=== PATIENT | female | born 2000 | race Caucasian/White ===

== ENCOUNTER → 2022-02-23 | Outpatient (CLI) | payer OTHER, SELFPAY ==
[2022-02-23 17:41] LABS: Amphetamine Urine VISTA NEGATIVE (<1000 ng/mL); Barbiturate Urine VISTA NEGATIVE (< 200 ng/mL); Benzodiazepine Urine VISTA NEGATIVE (< 200 ng/mL); Cocaine Urine VISTA NEGATIVE (< 300 ng/mL); Ecstacy Urine VISTA NEGATIVE (< 500 ng/mL); Methadone Urine VISTA NEGATIVE (< 300 ng/mL); PCP Urine VISTA NEGATIVE (< 25 ng/mL); THC Urine VISTA NEGATIVE (< 50 ng/mL); Vista UDS pH Range 5
[2022-02-26 08:10] LABS: Chlamydia By Nucleic Acid AMP Negative (Negative)
[2022-02-26 13:18] LABS: HPV Reflexed? NOT INDICATED
[2022-02-26 19:04] LABS: Gonococcus By Nucleic Acid AMP Negative (Negative)
== END | disposition home or self-care (01) ==
LOC: LABSPEC 16:51
PROVIDERS: Referring Provider Obstetrics & Gynecology; Visit Provider Obstetrics & Gynecology
DX: Z34.00 Encounter for supervision of normal first pregnancy, unspecified trimester (principal)
CPT/HCPCS: 80307; 87077; 87086; 87088; 87186; 87491; 87591; 88175; G0145

== ENCOUNTER → 2022-03-26 | Outpatient (CLI) | payer OTHER, SELFPAY ==
[2022-03-26 11:29] LABS: Absolute Lymphocyte Count 1.75 X10^3/uL (0.83-4.51); Absolute Neutrophil Count 4.6 X10^3/uL (2.0-7.7); Basophil# 0.01 X10^3/uL; Basophil% 0.1 % (0-1); Eosinophil# 0.01 X10^3/uL; Eosinophils% 0.1 % (0-5); Hematocrit 37.8 % (37-47); Hemoglobin 13.1 g/dL (12.0-15.0); Lymphocyte # 1.75 X10^3/ul (0.83-4.51); Lymphocyte % 25.1 % (19-41); Mean Corp Hgb Conc 34.7 g/dL (32-36); Mean Corpuscular Hgb 30.2 pg (27.0-32.0); Mean Corpuscular Volume 87.1 fL (81-99); Mean Platelet Vol. 10.2 fl (6.2-12.0); Monocyte# 0.55 X10^3/uL; Monocyte% 7.9 % (0-10); NRBC Flagged by Analyzer 0 % (0-5); Neutrophil # 4.63 X10^3/uL (2.7-7.7); Neutrophil % 66.7 % (47-70); Platelet Count 245 K/mm3 (150-450); RBC Distribution Width CV 11.9 % (11.6-14.6); RBC Distribution Width SD 38.3 fl (35.1-43.9); Red Blood Count 4.34 M/mm3 (4.2-5.4)
[2022-03-26 12:37] LABS: HIV - WCH Non-Reactive (Nonreactive); Hepatitis B Surface Antigen Non-Reactive (Nonreactive); Hepatitis C Antibody Non-Reactive (Nonreactive); Rubella IgG Reactive (Nonreactive); Syphilis Antibodies Non-reactive
== END | disposition home or self-care (01) ==
LOC: LAB 10:24
PROVIDERS: Visit Provider Obstetrics & Gynecology
DX: Z34.00 Encounter for supervision of normal first pregnancy, unspecified trimester (principal)
CPT/HCPCS: 36415; 85025; 86703; 86762; 86780; 86803; 86850; 86900; 86901; 87340

== ENCOUNTER → 2022-06-18 | Outpatient (CLI) | payer OTHER, SELFPAY ==
[2022-06-18 10:33] LABS: Absolute Neutrophil Count 7.9 X10^3/uL (2.0-7.7); Basophil# 0.01 X10^3/uL; Basophil% 0.1 % (0-1); Eosinophil# 0.03 X10^3/uL; Eosinophils% 0.3 % (0-5); Hematocrit 35.3 % (37-47); Hemoglobin 11.6 g/dL (12.0-15.0); Mean Corp Hgb Conc 32.9 g/dL (32-36); Mean Corpuscular Hgb 29.7 pg (27.0-32.0); Mean Corpuscular Volume 90.3 fL (81-99); Mean Platelet Vol. 9.8 fl (6.2-12.0); Monocyte# 0.75 X10^3/uL; Monocyte% 7.5 % (0-10); NRBC Flagged by Analyzer 0 % (0-5); Neutrophil # 7.88 X10^3/uL (2.7-7.7); Neutrophil % 78.5 % (47-70); Platelet Count 249 K/mm3 (150-450); RBC Distribution Width CV 12.5 % (11.6-14.6); RBC Distribution Width SD 41.1 fl (35.1-43.9); Red Blood Count 3.91 M/mm3 (4.2-5.4)
[2022-06-18 11:28] LABS: Glucose Challenge Gest 1H 50g 86 mg/dL (70-140)
== END | disposition home or self-care (01) ==
LOC: LAB 10:02
PROVIDERS: Referring Provider Obstetrics & Gynecology; Visit Provider Obstetrics & Gynecology
DX: Z34.00 Encounter for supervision of normal first pregnancy, unspecified trimester (principal)
CPT/HCPCS: 36415; 82950; 85025

== ENCOUNTER 2022-07-14 14:55 | Outpatient (CLI) | payer OTHER, SELFPAY ==
[2022-07-14 14:59] VITALS: BP 137/68; PULSE 83; TEMP 36.5
[2022-07-14 15:13] VITALS: BP 125/61; PULSE 73
[2022-07-14 15:22] VITALS: BMI 36.4
[2022-07-14 15:29] VITALS: BP 124/63; PULSE 83
[2022-07-14 16:10] LABS: Hematocrit 36.4 % (37-47); Hemoglobin 12.3 g/dL (12.0-15.0); Mean Corp Hgb Conc 33.8 g/dL (32-36); Mean Corpuscular Hgb 29.9 pg (27.0-32.0); Mean Corpuscular Volume 88.6 fL (81-99); Mean Platelet Vol. 10.2 fl (6.2-12.0); Platelet Count 268 K/mm3 (150-450); RBC Distribution Width CV 12.5 % (11.6-14.6); RBC Distribution Width SD 40.5 fl (35.1-43.9); Red Blood Count 4.11 M/mm3 (4.2-5.4); White Blood Count 10.7 K/mm3 (4.4-11.0)
[2022-07-14 16:15] VITALS: BP 126/64; PULSE 71
[2022-07-14 16:17] LABS: Protein, Urine (Random) 9.4 mg/dL (<11.9); Protein:Creat Ratio 205 mg/g CRE (0-200)
[2022-07-14 16:30] VITALS: BP 117/56; PULSE 75
--- NOTE | 2022-07-14 16:39 | OB.TRI.HP_ITS ---
HPI - General HPI Narrative SHAYLA COOPER, is a 22 F who presents to rule out pih. Her bp's in the hospital were all normal and the pc:cr ratio was also normal. She remains asymptomatic Maternal Data Information LEYDI Calculator Estimated Delivery Date Method Current WG Current Estimate 09/10/22 LMP (Uncertain) 31w 5d Other Estimates 09/10/22 Ultrasound #1 31w 5d PFSH PFSH Medical History DUB (dysfunctional uterine bleeding) Shingles Subcutaneous cyst Home Medications prenat.vits,lázaro,ngt-zffb-okrxd 1 tab PO DAILY 02/08/22 [History Last Taken 07/13/22 09:00] Allergy/AdvReac Type Severity Reaction Status Date / Time No Known Allergies Allergy Verified 07/14/22 15:23 Social History adopted: No household members: significant other number of children: 0 current occupational status: employed current occupation: [employer] Smoking Status: Never smoker alcohol intake: never substance use type: does not use do you feel safe at home: Yes additional social history: Tray Menard History 1 Elective abortions Hx Para 0 Spontaneous abortions Hx # Term Pregnancies Ectopic pregnancies Hx # Pregnancies Multiple births # of living children Visit Details Expected Delivery Route/Plan Labor Preferences- CB/BF classes: recommended and taking just breath labor support person: reymundo labor intervention preferences: [] pain management options preferred: [] cut cord/dad catch: [] : [] PP control planned: [] discussed possible routes of delivery and associated risks: [] special requests: will be circ. Plans Covid status: discussed Flu vaccine: disccussed Tdap vaccine: [] Rhogam: [] LARC form signed: [] Problem list reviewed and updated with the most current plan of care details and appropriate orders placed. Relevant counseling for the gestational age provided. Continue routine care and follow up unless otherwise noted in visit notes/problem list details OB Flowsheet Initial Weight: Not Recorded Date -?-?-?-?-?-?-?-?-?-?-?-?- EGA Weight BP Urine Prot -?-?-?--?-?-?-?-?-?-?-?-?- Glucose FHR FuHt Pres Dilation -?-?-?-?-?-?-?-?-?--?-?-?- Effaced St Visit Note 02/23/22 -?-?-?-?-?-?-?-?-?-?-?-?- 11w 4d 169 lb 4 oz 144/78 -?-?-?-?-?-?-?-?-?-?-?-?- 160 -?-?-?-?-?-?-?-?-?-?-?-?- JV- CRL consiste nt with LMP. pt wants genetic screening 03/26/22 -?-?-?-?-?-?--?-?-?-?-?-?- 16w 0d 168 lb 120/71 Negative -?-?-?-?-?-?-?-?-?-?-?-?- Negative 150 -?-?-?-?-?-?-?-?-?-?-?-?- SM- no vb lof no regular ctx 04/23/22 -?-?-?-?-?-?-?-?-?-?-?-?- 20w 0d 178 lb 6 oz 148/60 107/61 -?-?-?-?-?-?-?-?-?-?-?-?- 145 -?-?-?-?-?-?-?-?-?-?-?-?- SM- no vb crampi ng 05/21/22 -?-?-?-?-?-?-?-?-?-?-?-?- 24w 0d 186 lb 8 oz 129/71 Nega tive -?-?-?-?-?-?-?-?-?-?-?-?- Negative 147 -?-?-?-?--?-?-?-?-?-?-?-?- JV- no lof, vagi nal bleeding, or dec fm. pt states that the chest pain she had when she was on vacation was due to stress and she has not had any problems since then. 06/18/22 -?-?-?-?-?-?-?-?-?-?-?-?- 28w 0d 198 lb 127/66 Negative -?-?-?-?-?-?-?-?-?-?-?-?- Negative 134 -?-?-?-?-?-?-?-?-?-?-?-?- JV- pt is unsure about tdap. she did gct and cbc today which is pending. 07/02/22 -?-?-?-?-?-?-?-?-?-?-?-?- 30w 0d 201 lb 102/70 -?-?-?-?-?-?-?-?-?-?-?-?- 140 30 -?-?-?-?-?-?-?-?-?-?-?-?- SM- no vb lof go od fm no regular ctx 07/14/22 -?-?-?-?-?-?-?-?-?-?-?-?- 31w 5d 208 lb 140/90 Negative -?-?-?-?-?-?-?-?-?-?-?-?- Negative 135 32 -?-?-?-?-?-?-?-?-?-?-?-?- LC- denies heada cassie, RUQ, visual changes. has had increased edema past few days. sent to L&D for AR[facility] clemens. ELIAZAR Constitutional Constitutional: Reports systems reviewed and no addt'l complaints, except as documented Gastrointestinal Gastrointestinal: Denies bloating, constipation, cramping, diarrhea, nausea or vomiting Genitourinary Genitourinary: Reports other Details: Denies vaginal odor, vaginal bleeding, or vaginal discharge ; Denies difficulty urinating or flank pain NST FHR Rate Baby A Baseline: 140 Variability:: Moderate Accelerations:: 10 x 10 Decelerations:: None NST Reactive:: Yes FHR Category:: Category I Assessment & Plan (1) Supervision of normal first : COMMENT: PRR LEYDI:09/19/22 boy Fiance:Reymundo (2) GBS (group B streptococcus) UTI complicating : COMMENT: PCN during labor (3) : QUALIFIERS: Weeks of gestation: 31 weeks Qualified Code(s): Z3A.31 - 31 weeks gestation of COMMENT: declined genetic, ntd, and carrier screen. nl anatomy PLAN: Plan pt sent to rule out PIH/PRe-e and is ruled out at this time ok to dc to home Charges/Coding Multi Select Codes Visit Charges Office Visit/Consults: 86722 OV L3 Est Urinary/Genital Urinary/Genital CPT Codes: 24112-91 non-stress test Interp
[2022-07-14 16:45] VITALS: BP 119/67; PULSE 96
[2022-07-14 16:52] LABS: AST(SGOT) 15 U/L (15-37); Alanine Aminotransfer ALT/SGPT 21 U/L (13-56); Creatinine, Serum 0.56 mg/dL (0.55-1.02); EST Glomerular Filtration Rate 142 mL/min (>60); Est Glom Filt Rate - Afr Amer 171 mL/min (>60); Estimated Creatinine Clearance 128.14 ml/min; Uric Acid 3.3 mg/dL (2.6-6.0)
== END 2022-07-14 17:05 | disposition home or self-care (01) ==
LOC: WPOUT 14:56 → WP 14:57
PROVIDERS: Visit Provider Obstetrics & Gynecology
DX: O13.3 Gestational [pregnancy-induced] hypertension without significant proteinuria, third trimester (principal); Z3A.31 31 weeks gestation of pregnancy
CPT/HCPCS: 36415; 59025; 59050; 82565; 82570; 84156; 84450; 84460; 84550; 85027; 99218; G0378

== ENCOUNTER 2022-08-05 15:55 | Outpatient (CLI) | payer OTHER, SELFPAY ==
[2022-08-05] VITALS (15 sets, daily range): BP systolic 129–131; BP diastolic 62–68; PULSE 68–98; TEMP 36.5; O2SAT 87–100; BMI 38.8
[2022-08-05 16:36] LABS: Hematocrit 32.5 % (37-47); Hemoglobin 10.9 g/dL (12.0-15.0); Mean Corp Hgb Conc 33.5 g/dL (32-36); Mean Corpuscular Hgb 29.3 pg (27.0-32.0); Mean Corpuscular Volume 87.4 fL (81-99); Mean Platelet Vol. 10.5 fl (6.2-12.0); Platelet Count 263 K/mm3 (150-450); RBC Distribution Width CV 12.5 % (11.6-14.6); RBC Distribution Width SD 39.6 fl (35.1-43.9); Red Blood Count 3.72 M/mm3 (4.2-5.4); White Blood Count 9.4 K/mm3 (4.4-11.0)
[2022-08-05 16:53] LABS: Protein, Urine (Random) 7.1 mg/dL (<11.9); Protein:Creat Ratio 296 mg/g CRE (0-200)
[2022-08-05 17:30] LABS: AST(SGOT) 14 U/L (15-37); Alanine Aminotransfer ALT/SGPT 22 U/L (13-56); Creatinine, Serum 0.53 mg/dL (0.55-1.02); EST Glomerular Filtration Rate 150 mL/min (>60); Est Glom Filt Rate - Afr Amer 182 mL/min (>60); Estimated Creatinine Clearance 135.39 ml/min; Uric Acid 3.8 mg/dL (2.6-6.0)
--- NOTE | 2022-08-11 01:57 | OB.TRI.PN_ITS ---
Progress Notes Date of Service: 08/05/22 Progress Note: Patient presents for triage evaluation secondary to possible preeclampsia FHT: 130 Moderate variability reactive no decelerations category I tracing [place]: no regular Contractions Assessment and plan: normal bps no preeclampsia Reactive NST, reassuring mate rnal and status patient discharged to home to follow-up as scheduled. See problem list details for additional plan information. Laboratory Studies: Laboratory Tests 08/05/22 08/05/22 08/05/22 Range/Units 16:25 16:25 16:25 WBC 9.4 (4.4-11.0) K/mm3 RBC 3.72 L (4.2-5.4) M/mm3 Hgb 10.9 L (12.0-15.0) g/dL Hct 32.5 L (37-47) % MCV 87.4 (81-99) fL MCH 29.3 (27.0-32.0) pg MCHC 33.5 (32-36) g/dL RDW Std Deviation 39.6 (35.1-43.9) fl RDW Coeff of Willi 12.5 (11.6-14.6) % Plt Count 263 (150-450) K/mm3 MPV 10.5 (6.2-12.0) fl Creatinine 0.53 L (0.55-1.02) mg/dL Estim Creat Clear Calc 135.39 ml/min Est GFR (MDRD) Af Amer 182 (>60) mL/min Est GFR (MDRD) Non-Af 150 (>60) mL/min Uric Acid 3.8 (2.6-6.0) mg/dL AST 14 L (15-37) U/L ALT 22 (13-56) U/L U Random Total Protein 7.1 (<11.9) mg/dL Urine Creatinine 24.00 (NO RANGE EST.) mg/dL Protein/Creatinin Ratio 296 H (0-200) mg/g CRE Charges/Coding Procedures Urinary/Genital 52xxx-59xxx: 61859-03 non-stress test Interp
== END 2022-08-05 17:32 | disposition home or self-care (01) ==
LOC: WPOUT 15:59 → WP 15:59
PROVIDERS: Visit Provider Obstetrics & Gynecology
DX: O26.899 Other specified pregnancy related conditions, unspecified trimester (principal)
CPT/HCPCS: 36415; 59025; 59050; 82565; 82570; 84156; 84450; 84460; 84550; 85027; 99218; G0378

== ENCOUNTER 2022-08-25 08:55 | Outpatient (CLI) | payer OTHER, SELFPAY ==
[2022-08-25] VITALS (13 sets, daily range): BP systolic 106–146; BP diastolic 55–82; PULSE 66–77; TEMP 36.8; BMI 39.0
[2022-08-25 09:49] LABS: Mean Corp Hgb Conc 34.4 g/dL (32-36); Mean Corpuscular Hgb 29.7 pg (27.0-32.0); Mean Corpuscular Volume 86.5 fL (81-99); Platelet Count 232 K/mm3 (150-450); RBC Distribution Width CV 13.2 % (11.6-14.6); RBC Distribution Width SD 41.3 fl (35.1-43.9); White Blood Count 8.6 K/mm3 (4.4-11.0)
[2022-08-25 10:02] LABS: Protein, Urine (Random) 36.6 mg/dL (<11.9); Protein:Creat Ratio 279 mg/g CRE (0-200)
[2022-08-25 10:05] LABS: AST(SGOT) 14 U/L (15-37); Alanine Aminotransfer ALT/SGPT 21 U/L (13-56); Creatinine, Serum 0.72 mg/dL (0.55-1.02); EST Glomerular Filtration Rate 106 mL/min (>60); Est Glom Filt Rate - Afr Amer 128 mL/min (>60); Estimated Creatinine Clearance 104.04 ml/min; Uric Acid 5.7 mg/dL (2.6-6.0)
--- NOTE | 2022-08-25 17:46 | OB.TRI.HP_ITS ---
HPI - General HPI Narrative SHAYLA COOPER, is a 22 F who presents to L&D at 37+5 from the office with elevated BP, headaches over the weekend. generalized edema with increased facial edema over the past 24 hours. Maternal Data Information LEYDI Calculator Estimated Delivery Date Method Current WG Current Estimate 09/10/22 LMP (Uncertain) 37w 5d Other Estimates 09/10/22 Ultrasound #1 37w 5d PFSH PFSH Medical History DUB (dysfunctional uterine bleeding) Shingles Subcutaneous cyst Home Medications prenat.vits,lázaro,kqk-vcrm-awzsv 1 tab PO DAILY 02/08/22 [History Last Taken 08/24/22] Allergy/AdvReac Type Severity Reaction Status Date / Time No Known Allergies Allergy Verified 08/25/22 08:27 Social History adopted: No household members: significant other number of children: 0 current occupational status: employed current occupation: [employer] Smoking Status: Never smoker alcohol intake: never substance use type: does not use do you feel safe at home: Yes additional social history: Tray Menard History 1 Elective abortions Hx Para 0 Spontaneous abortions Hx # Term Pregnancies Ectopic pregnancies Hx # Pregnancies Multiple births # of living children Visit Details Expected Delivery Route/Plan Labor Preferences- CB/BF classes: recommended and taking just breath labor support person: derian labor intervention preferences: open to epidural pain management options preferred: epidural likely, open to nitrous cut cord/dad catch: yes : yes PP control planned: discussed possible routes of delivery and associated risks: discussed possible delivery modalities and possible indications for each including R/B/A of , VAVD, and CS. questions answered. special requests: will be circ. Plans Covid status: discussed Flu vaccine: given Tdap vaccine: given Rhogam: na LARC form signed: na movement and labor precautions reviewed. Problem list reviewed and updated with the most current plan of care details and appropriate orders placed. Relevant counseling for the gestational age provided. Continue routine care and follow up unless otherwise noted in visit notes/problem list details OB Flowsheet Initial Weight: Not Recorded Date -?-?-?-?-?-?-?-?-?-?-?-?- EGA Weight BP Urine Prot -?-?-?-?-?-?-?-?-?-?-?-?- Glucose FHR FuHt Pres Dilation -?-?-?-?-?-?-?-?-?-?-?-?- Effaced St Visit Note 02/23/22 -?-?-?-?-?-?-?-?-?-?-?-?- 11w 4d 169 lb 4 oz 144/78 -?-?-?-?-?-?-?-?-?-?-?-?- 160 -?-?-?-?-?-?-?-?-?-?-?-?- JV- CRL consiste nt with LMP. pt wants genetic screening 03/26/22 -?-?-?-?-?-?-?-?-?-?-?-?- 16w 0d 168 lb 120/71 Negative -?-?-?-?-?-?-?-?-?-?-?-?- Negative 150 -?-?-?-?-?-?-?-?-?-?-?-?- SM- no vb lof no regular ctx 04/23/22 -?-?-?-?-?-?-?-?-?-?-?-?- 20w 0d 178 lb 6 oz 148/60 107/61 -?-?-?-?-?-?-?-?-?-?-?-?- 145 -?-?-?-?-?-?-?-?-?-?-?-?- SM- no vb crampi ng 05/21/22 -?-?-?-?-?-?-?-?-?-?-?-?- 24w 0d 186 lb 8 oz 129/71 Nega tive -?-?-?-?-?-?-?-?-?-?-?-?- Negative 147 -?-?-?-?-?-?-?-?-?-?-?-?- JV- no lof, vagi nal bleeding, or dec fm. pt states that the chest pain she had when she was on vacation was due to stress and she has not had any problems since then. 06/18/22 -?-?-?-?-?-?-?-?-?-?-?-?- 28w 0d 198 lb 127/66 Negative -?-?-?-?-?-?-?-?-?-?-?-?- Negative 134 -?-?-?-?-?-?-?-?-?-?-?-?- JV- pt is unsure about tdap. she did gct and cbc today which is pending. 07/02/22 -?-?-?-?-?-?-?-?-?-?-?-?- 30w 0d 201 lb 102/70 -?-?-?-?-?-?-?-?-?-?-?-?- 140 30 -?-?-?-?-?-?-?-?-?-?-?-?- SM- no vb lof go od fm no regular ctx 07/14/22 -?-?-?-?-?-?-?-?-?-?-?-?- 31w 5d 208 lb 140/90 Negative -?-?-?-?-?-?-?-?-?-?-?-?- Negative 135 32 -?-?-?-?-?-?-?-?-?-?-?-?- LC- denies heada cassie, RUQ, visual changes. has had increased edema past few days. sent to L&D for ARIC clemens. 07/26/22 -?-?-?-?-?-?-?-?-?-?-?-?- 33w 3d 216 lb 128/87 Negative -?-?-?-?-?-?-?-?-?-?-?-?- Negative 140 34 -?-?-?-?-?-?-?-?-?-?-?-?- LC-no ctx,lof,vb . good fm. denies concerns. 08/13/22 -?-?-?-?-?-?-?-?-?-?-?-?- 36w 0d 220 lb 6 oz 118/71 Nega tive -?-?-?-?-?-?-?-?-?-?-?-?- Negative 140 36 Cephalic -?-?-?-?-?-?-?-?-?-?-?-?- SM- no vb lof go od fm n oregular ctx 08/20/22 -?-?-?-?-?-?-?-?-?-?-?-?- 37w 0d 226 lb 136/80 Negative -?-?-?-?-?-?-?-?-?-?-?-?- Negative 140 38 Cephalic 0 -?-?-?-?-?-?-?-?-?-?-?-?- SM- no vb lof go od fm no regular ctx increased swelling retained fluid 08/25/22 -?-?-?-?-?-?-?-?-?-?-?-?- 37w 5d 231 lb 4 oz 155/84 Posi tive -?-?-?-?-?-?-?-?-?-?-?-?- Negative 145 Cephalic -?-?-?-?-?-?-?-?-?-?-?-?- LC- increased sw elling over the weekend, occ headaches. no visual changes, ruq pain. rpt BP 153/103. sent to L&D for PEC labs and serial bps. 08/25/22 -?-?-?-?-?-?-?-?-?-?-?-?- 37w 5d 227 lb 8 oz 138/78 146/82 137/75 138/72 134/76 125/69 123/65 108/57 107/56 108/55 106/56 126/72 123/74 -?-?-?-?-?-?-?-?-?-?-?-?- -?-?-?-?-?-?-?-?-?-?-?-?- NST FHR Rate Baby A Baseline: 130 Variability:: Moderate Accelerations:: 15 x 15 Decelerations:: None NST Reactive:: Yes FHR Category:: Category I Uterine Activity:: irregular Assessment & Plan (1) Elevated BP without diagnosis of hypertension: COMMENT: sent to L&D to PEC work up. increased swelling/ mild headache (2) GBS (group B streptococcus) UTI complicating : COMMENT: PCN during labor (3) Supervision of normal first : COMMENT: PRR LEYDI:09/19/[birth year] boy Fiance:Derian (4) : QUALIFIERS: Weeks of gestation: 37 weeks Qualified Code(s): Z3A.37 - 37 weeks gestation of COMMENT: declined genetic, ntd, and carrier screen. nl anatomy PLAN: Plan Patient presents for triage evaluation secondary to elevated BP. PEC work up obtained and negative findings. BP stable prior to discharge Assessment and plan: Reactive NST, reassuring maternal and status patient discharged to home to follow-up on tuesday in office for BP check. See problem list details for additional plan information. Charges/Coding Procedures Urinary/Genital 52xxx-59xxx: 01220-61 non-stress test Interp
--- NOTE | 2022-08-25 17:46 | OB.TRI.NOTE ---
HPI - General HPI Narrative SHAYLA COOPER, is a 22 F who presents to L&D at 37+5 from the office with elevated BP, headaches over the weekend. generalized edema with increased facial edema over the past 24 hours. Maternal Data Information LEYDI Calculator Estimated Delivery Date Method Current WG Current Estimate 09/10/22 LMP (Uncertain) 37w 5d Other Estimates 09/10/22 Ultrasound #1 37w 5d PFSH PFSH Medical History DUB (dysfunctional uterine bleeding) Shingles Subcutaneous cyst Home Medications prenat.vits,lázaro,nld-yqya-pxpzx 1 tab PO DAILY 02/08/22 [History Last Taken 08/24/22] Allergy/AdvReac Type Severity Reaction Status Date / Time No Known Allergies Allergy Verified 08/25/22 08:27 Social History adopted: No household members: significant other number of children: 0 current occupational status: employed current occupation: [employer] Smoking Status: Never smoker alcohol intake: never substance use type: does not use do you feel safe at home: Yes additional social history: Tray Menard History 1 Elective abortions Hx Para 0 Spontaneous abortions Hx # Term Pregnancies Ectopic pregnancies Hx # Pregnancies Multiple births # of living children Visit Details Expected Delivery Route/Plan Labor Preferences- CB/BF classes: recommended and taking just breath labor support person: derian labor intervention preferences: open to epidural pain management options preferred: epidural likely, open to nitrous cut cord/dad catch: yes : yes PP control planned: discussed possible routes of delivery and associated risks: discussed possible delivery modalities and possible indications for each including R/B/A of , VAVD, and CS. questions answered. special requests: will be circ. Plans Covid status: discussed Flu vaccine: given Tdap vaccine: given Rhogam: na LARC form signed: na movement and labor precautions reviewed. Problem list reviewed and updated with the most current plan of care details and appropriate orders placed. Relevant counseling for the gestational age provided. Continue routine care and follow up unless otherwise noted in visit notes/problem list details OB Flowsheet Initial Weight: Not Recorded Date <del>?</del> EGA Weight BP Urine Prot <del>?</del> Glucose FHR FuHt Pres Dilation <del>?</del> Effaced St Visit Note 02/23/22 <del>?</del> 11w 4d 169 lb 4 oz 144/78 <del>?</del> 160 <del>?</del> JV- CRL consistent with LMP. pt wants genetic screening 03/26/22 <del>?</del> 16w 0d 168 lb 120/71 Negative <del>?</del> Negative 150 <del>?</del> SM- no vb lof no regular ctx 04/23/22 <del>?</del> 20w 0d 178 lb 6 oz 148/60 107/61 <del>?</del> 145 <del>?</del> SM- no vb cramping 05/21/22 <del>?</del> 24w 0d 186 lb 8 oz 129/71 Negative <del>?</del> Negative 147 <del>?</del> JV- no lof, vaginal bleeding, or dec fm. pt states that the chest pain she had when she was on vacation was due to stress and she has not had any problems since then. 06/18/22 <del>?</del> 28w 0d 198 lb 127/66 Negative <del>?</del> Negative 134 <del>?</del> JV- pt is unsure about tdap. she did gct and cbc today which is pending. 07/02/22 <del>?</del> 30w 0d 201 lb 102/70 <del>?</del> 140 30 <del>?</del> SM- no vb lof good fm no regular ctx 07/14/22 <del>?</del> 31w 5d 208 lb 140/90 Negative <del>?</del> Negative 135 32 <del>?</del> LC- denies headache, RUQ, visual changes. has had increased edema past few days. sent to L&D for [facility]. 07/26/22 <del>?</del> 33w 3d 216 lb 128/87 Negative <del>?</del> Negative 140 34 <del>?</del> LC-no ctx,lof,vb. good fm. denies concerns. 08/13/22 <del>?</del> 36w 0d 220 lb 6 oz 118/71 Negative <del>?</del> Negative 140 36 Cephalic <del>?</del> SM- no vb lof good fm n oregular ctx 08/20/22 <del>?</del> 37w 0d 226 lb 136/80 Negative <del>?</del> Negative 140 38 Cephalic 0 <del>?</del> SM- no vb lof good fm no regular ctx increased swelling retained fluid 08/25/22 <del>?</del> 37w 5d 231 lb 4 oz 155/84 Positive <del>?</del> Negative 145 Cephalic <del>?</del> LC- increased swelling over the weekend, occ headaches. no visual changes, ruq pain. rpt BP 153/103. sent to L&D for PEC labs and serial bps. 08/25/22 <del>?</del> 37w 5d 227 lb 8 oz 138/78 146/82 137/75 138/72 134/76 125/69 123/65 108/57 107/56 108/55 106/56 126/72 123/74 <del>?</del> <del>?</del> NST FHR Rate Baby A Baseline: 130 Variability:: Moderate Accelerations:: 15 x 15 Decelerations:: None NST Reactive:: Yes FHR Category:: Category I Uterine Activity:: irregular Assessment & Plan (1) Elevated BP without diagnosis of hypertension: COMMENT: sent to L&D to PEC work up. increased swelling/ mild headache (2) GBS (group B streptococcus) UTI complicating : COMMENT: PCN during labor (3) Supervision of normal first : COMMENT: PRR LEYDI:09/19/[birth year] boy Fiance:Derian (4) : QUALIFIERS: Weeks of gestation: 37 weeks Qualified Code(s): Z3A.37 - 37 weeks gestation of COMMENT: declined genetic, ntd, and carrier screen. nl anatomy PLAN: Plan Patient presents for triage evaluation secondary to elevated BP. PEC work up obtained and negative findings. BP stable prior to discharge Assessment and plan: Reactive NST, reassuring maternal and status patient discharged to home to follow-up on tuesday in office for BP check. See problem list details for additional plan information. Charges/Coding Procedures Urinary/Genital 52xxx-59xxx: 16907-96 non-stress test Interp
== END 2022-08-25 11:25 | disposition home or self-care (01) ==
LOC: WPOUT 09:00 → WP 09:01
PROVIDERS: Visit Provider Registered Nurse
DX: O99.891 Other specified diseases and conditions complicating pregnancy (principal); O23.43 Unspecified infection of urinary tract in pregnancy, third trimester; R60.9 Edema, unspecified; B95.1 Streptococcus, group B, as the cause of diseases classified elsewhere; R51.9 Headache, unspecified; Z3A.37 37 weeks gestation of pregnancy; R03.0 Elevated blood-pressure reading, without diagnosis of hypertension
CPT/HCPCS: 36415; 59025; 59050; 82565; 82570; 84156; 84450; 84460; 84550; 85027; 99218; G0378

== ENCOUNTER 2022-08-31 17:17 | Inpatient (IN) | payer OTHER, SELFPAY ==
[2022-08-31] VITALS (10 sets, daily range): BP systolic 141–174; BP diastolic 78–99; PULSE 51–90; TEMP 36.4–37.2; O2SAT 97–99; BMI 40.7
[2022-08-31 17:08] LABS: Hematocrit 33.3 % (37-47); Hemoglobin 10.9 g/dL (12.0-15.0); Mean Corp Hgb Conc 32.7 g/dL (32-36); Mean Corpuscular Hgb 28.5 pg (27.0-32.0); Mean Corpuscular Volume 86.9 fL (81-99); Mean Platelet Vol. 11.4 fl (6.2-12.0); Platelet Count 239 K/mm3 (150-450); RBC Distribution Width CV 13.4 % (11.6-14.6); RBC Distribution Width SD 42.1 fl (35.1-43.9); Red Blood Count 3.83 M/mm3 (4.2-5.4); White Blood Count 7.4 K/mm3 (4.4-11.0)
[2022-08-31 17:22] LABS: AST(SGOT) 18 U/L (15-37); Alanine Aminotransfer ALT/SGPT 17 U/L (13-56); Creatinine, Serum 0.75 mg/dL (0.55-1.02); EST Glomerular Filtration Rate 100 mL/min (>60); Est Glom Filt Rate - Afr Amer 121 mL/min (>60); Estimated Creatinine Clearance 99.88 ml/min; Uric Acid 5.9 mg/dL (2.6-6.0)
--- NOTE | 2022-08-31 17:23 | HP.PCM.OB_ITS ---
HPI - General General Date of Admission: 08/31/22 HPI Narrative SHAYLA COOPER, is a 22 F who presents with elevated bps and increased swelling, intermittent mild SANDOVAL. no clonus. Maternal Data Information LEYDI Calculator Estimated Delivery Date Method Current WG Current Estimate 09/10/22 LMP (Uncertain) 38w 4d Other Estimates 09/10/22 Ultrasound #1 38w 4d PFSH PFSH Medical History DUB (dysfunctional uterine bleeding) Shingles Subcutaneous cyst Home Medications prenat.vits,lázaro,nid-rjfy-wvtxt 1 tab PO DAILY 02/08/22 [History Last Taken 08/29/22 21:00] Allergy/AdvReac Type Severity Reaction Status Date / Time No Known Allergies Allergy Verified 08/31/22 16:41 Social History adopted: No household members: significant other number of children: 0 current occupational status: employed current occupation: [employer] Smoking Status: Never smoker alcohol intake: never substance use type: does not use do you feel safe at home: Yes additional social history: Tray Menard History 1 Elective abortions Hx Para 0 Spontaneous abortions Hx # Term Pregnancies Ectopic pregnancies Hx # Pregnancies Multiple births # of living children Visit Details Expected Delivery Route/Plan Labor Preferences- CB/BF classes: recommended and taking just breath labor support person: derian labor intervention preferences: open to epidural pain management options preferred: epidural likely, open to nitrous cut cord/dad catch: yes : yes PP control planned: discussed possible routes of delivery and associated risks: discussed possible delivery modalities and possible indications for each including R/B/A of , VAVD, and CS. questions answered. special requests: will be circ. Plans Covid status: discussed Flu vaccine: given Tdap vaccine: given Rhogam: na LARC form signed: na movement and labor precautions reviewed. Problem list reviewed and updated with the most current plan of care details and appropriate orders placed. Relevant counseling for the gestational age provided. Continue routine care and follow up unless otherwise noted in visit notes/problem list details OB Flowsheet Initial Weight: Not Recorded Date -?-?-?-?-?-?-?-?-?-?-?-?- EGA Weight BP Urine Prot -?-?-?-?-?-?-?-?-?-?-?-?- Glucose FHR FuHt Pres Dilation -?-?-?-?-?-?-?-?-?-?-?-?- Effaced St Visit Note 02/23/22 -?-?--?-?-?-?-?-?-?-?-?-?- 11w 4d 76.771 kg 144/78 -?-?-?-?-?-?-?-?-?-?-?-?- 160 -?-?-?-?-?-?-?-?-?-?-?-?- JV- CRL consiste nt with LMP. pt wants genetic screening 03/26/22 -?-?-?-?-?-?-?-?-?-?-?-?- 16w 0d 76.204 kg 120/71 Negati ve -?-?-?-?-?-?-?-?-?-?-?-?- Negative 150 -?-?-?-?-?-?-?-?--?-?-?-?- SM- no vb lof no regular ctx 04/23/22 -?-?-?-?-?-?-?-?-?-?-?-?- 20w 0d 80.91 kg 148/60 107/61 -?-?-?-?-?-?-?-?-?-?-?-?- 145 -?-?-?-?-?-?-?-?-?-?-?-?- SM- no vb crampi ng 05/21/22 -?-?-?-?-?-?-?-?-?-?-?-?- 24w 0d 84.595 kg 129/71 Negati ve -?-?-?-?-?-?-?-?-?-?-?-?- Negative 147 -?-?-?-?-?-?-?-?-?-?-?-?- JV- no lof, vagi nal bleeding, or dec fm. pt states that the chest pain she had when she was on vacation was due to stress and she has not had any problems since then. 06/18/22 -?-?-?-?-?-?-?-?-?-?-?-?- 28w 0d 89.811 kg 127/66 Negati ve -?-?-?-?-?-?-?-?-?-?-?-?- Negative 134 -?-?-?-?-?-?-?-?-?-?-?-?- JV- pt is unsure about tdap. she did gct and cbc today which is pending. 07/02/22 -?-?-?-?-?-?-?-?-?-?-?-?- 30w 0d 91.172 kg 102/70 -?-?-?-?-?-?-?-?-?-?-?-?- 140 30 -?-?-?-?-?-?-?-?-?-?-?-?- SM- no vb lof go od fm no regular ctx 07/14/22 -?-?-?-?-?-?-?-?-?-?-?-?- 31w 5d 94.347 kg 140/90 Negati ve -?-?-?-?-?-?-?-?-?-?-?-?- Negative 135 32 -?-?-?-?-?-?-?-?-?-?-?-?- LC- denies heada cassie, RUQ, visual changes. has had increased edema past few days. sent to L&D for PIH josephineal. 07/26/22 -?-?-?-?-?-?-?-?-?-?-?-?- 33w 3d 97.976 kg 128/87 Negati ve -?-?-?-?-?-?-?-?-?-?-?-?- Negative 140 34 -?-?-?-?-?-?-?-?-?-?-?-?- LC-no ctx,lof,vb . good fm. denies concerns. 08/13/22 -?-?-?-?-?-?-?-?-?-?-?-?- 36w 0d 99.96 kg 118/71 Negativ e -?-?-?-?-?-?-?-?-?-?-?-?- Negative 140 36 Cephalic -?-?-?-?-?-?-?-?-?-?-?-?- SM- no vb lof go od fm n oregular ctx 08/20/22 -?-?-?-?-?-?-?-?-?-?-?-?- 37w 0d 102.512 kg 136/80 Negat darin -?-?-?-?-?-?-?-?-?-?-?-?- Negative 140 38 Cephalic 0 -?-?-?-?-?-?-?-?-?-?-?-?- SM- no vb lof go od fm no regular ctx increased swelling retained fluid 08/25/22 -?-?-?-?-?-?-?-?-?-?-?-?- 37w 5d 104.893 kg 155/84 Posit darin -?-?-?-?-?-?--?-?-?-?-?-?- Negative 145 Cephalic -?-?-?-?-?-?-?-?-?-?-?-?- LC- increased sw elling over the weekend, occ headaches. no visual changes, ruq pain. rpt BP 153/103. sent to L&D for PEC labs and serial bps. 08/31/22 -?-?-?-?-?-?-?-?-?-?-?-?- 38w 4d 107.6 kg 149/78 143/80 147/93 174/89 156/88 -?-?-?-?-?-?-?-?-?-?-?-?- -?-?-?-?-?-?-?-?-?-?-?-?- NST FHR Rate Baby A Baseline: 130 Variability:: Moderate Accelerations:: 15 x 15 Decelerations:: None NST Reactive:: Yes FHR Category:: Category I Uterine Activity:: irregular ROS Constitutional Constitutional: Reports systems reviewed and no addt'l complaints, except as documented Eyes Eyes: Denies change in vision ENT HEENT: Reports systems reviewed and no addt'l complaints, except as documented; Denies headache(s) Cardiovascular Cardiovascular: Reports systems reviewed and no addt'l complaints, except as documented; Denies chest pain or dyspnea Respiratory/Chest Respiratory/Chest: Reports systems reviewed and no addt'l complaints, except as documented Gastrointestinal Gastrointestinal: Reports systems reviewed and no addt'l complaints, except as documented; Denies abdominal pain Genitourinary Genitourinary: Reports systems reviewed and no addt'l complaints, except as documented, contractions Details: present (irregular) and movement Details: present; Denies dysuria or genital lesions Musculoskeletal Musculoskeletal: Reports systems reviewed and no addt'l complaints, except as documented Neurologic Neurologic: Reports systems reviewed and no addt'l complaints, except as documented Endocrine Endocrinology: Reports systems reviewed and no addt'l complaints, except as documented Vital Signs Vital Signs Vital Signs: 08/31/22 16:33 08/31/22 16:33 08/31/22 16:33 Temperature Temperature Source Pulse Rate 74 Blood Pressure 149/78 H BP Systolic 149 BP Diastolic 78 Pulse Ox 97 08/31/22 16:33 08/31/22 16:33 08/31/22 16:33 Temperature 98.9 F Temperature Source Temporal Pulse Rate 71 Blood Pressure BP Systolic BP Diastolic Pulse Ox 08/31/22 16:49 08/31/22 16:49 08/31/22 17:04 Temperature Temperature Source Pulse Rate 73 Blood Pressure 143/80 H 147/93 H BP Systolic 143 147 BP Diastolic 80 93 Pulse Ox 08/31/22 17:04 08/31/22 17:07 08/31/22 17:07 Temperature Temperature Source Pulse Rate 71 90 Blood Pressure 174/89 H BP Systolic 174 BP Diastolic 89 Pulse Ox 08/31/22 17:18 08/31/22 17:18 Temperature Temperature Source Pulse Rate 76 Blood Pressure 156/88 H BP Systolic 156 BP Diastolic 88 Pulse Ox Weight Weight: 107.6 kg Body Mass Index (BMI) 40.7 Physical Exam Const alert, oriented x3, no apparent distress and healthy appearing HEENT normocephalic and moist oral mucous membranes Head and Scalp: atraumatic Neck full ROM, no lymphadenopathy, supple and thyroid normal General: trachea midline Lymph Lymphatic: no lymphadenopathy noted Chest inspection of chest normal Resp normal respiratory effort Cardio regular rate GI normal to inspection, nondistended, normoactive bowel sounds, soft to palpation and non-tender Inspection: gravid external exam normal Manual OB Exam: estimated gestational size appropriate, presentation cephalic, dilated, effaced and station Extremity normal to inspection General Extremity: Negative for edema Skin no rashes or lesions noted Neuro no focal motor deficits and deep tendon reflexes 2+ bilaterally Motor Exam: strength 5/5 throughout and clonus absent Psych mental status grossly normal Labs Labs Labs: Blood Type B POSITIVE Antibody Screen NEGATIVE Hct 33.3 % (37-47) L Hgb 10.9 g/dL (12.0-15.0) L Syphilis Total Ab Non-reactive Rubella IgG Antibody Reactive (Nonreactive) Hep Bs Antigen Non-Reactive (Nonreactive) Chlamydia DNA (SRIKANTH) Negative (Negative) Neisseria gonorrhoeae DNA (SRIKANTH) Negative (Negative) HIV 1&2 Antibody Non-Reactive (Nonreactive) Glucose 1 Hr 50 gm 86 mg/dL (70-140) Assessment & Plan (1) : QUALIFIERS: Weeks of gestation: 37 weeks Qualified Code(s): Z3A.37 - 37 weeks gestation of COMMENT: declined genetic, ntd, and carrier screen. nl anatomy (2) Supervision of normal first : COMMENT: PRR LEYDI:09/19/22 boy Fiance:Derian (3) GBS (group B streptococcus) UTI complicating : COMMENT: PCN during labor (4) Gestational hypertension: COMMENT: plan IOL, labs drawn (5) Encounter for induction of labor: COMMENT: plan cytotec then pitocin PLAN: Plan Patient presents IOL, plan management for with cytotec. Pain management: plans epidural. GBS positive plan pcn in labor Management of any complications: GHTN I have reviewed the [facility] and made any clinically relevant updates.
[2022-08-31] MEDS: 0.9% Saline Lock 10 ML Syringe IV (17:33)
[2022-08-31 18:01] LABS: Protein, Urine (Random) 868.4 mg/dL (<11.9); Protein:Creat Ratio 8754 mg/g CRE (0-200)
[2022-08-31] MEDS: miSOPROStol 25 MCG TABLET VAGINAL ×2 (19:27→23:35)
[2022-09-01] VITALS (48 sets, daily range): BP systolic 108–170; BP diastolic 59–94; PULSE 35–163; TEMP 36.2–38.6; O2SAT 82–100
[2022-09-01] MEDS: miSOPROStol 25 MCG TABLET VAGINAL (03:58)
[2022-09-01] MEDS: Lactated Ringers 1,000 ML 50 ML IV (07:33)
--- NOTE | 2022-09-01 08:42 | PCM.PN.OB ---
Subjective Subjective water broke at 6:30m, clear fluid. mild/mod contractions. rating pain 4/10. not breathing through contractions. Objective Data Objective Data Vital Signs: Vital Signs Temp Pulse BP Pulse Ox 97.3 F L 80 141/86 H 100 09/01/22 07:20 09/01/22 08:33 09/01/22 08:32 09/01/22 08:33 Weight: 237 lb 3.478 oz Body Mass Index (BMI) 40.7 Intake & Output: Intake and Output for Last 24 Hours 08/30/22 08/31/22 09/01/22 23:59 23:59 23:59 Intake Total 105 / 105 Balance 105 / 105 Lab / Micro Data Attestation: I reviewed the patient's lab results. Result Diagrams: 08/31/22 16:55 08/31/22 16:55 Labs: Laboratory Results - last 24 hr 08/31/22 16:30: U Random Total Protein 868.4 H, Urine Creatinine 99.20, Protein/Creatinin Ratio 8754 H 08/31/22 16:55: WBC 7.4, RBC 3.83 L, Hgb 10.9 L, Hct 33.3 L, MCV 86.9, MCH 28.5, MCHC 32.7, RDW Std Deviation 42.1, RDW Coeff of Willi 13.4, Plt Count 239, MPV 11.4 08/31/22 16:55: Creatinine 0.75, Estim Creat Clear Calc 99.88, Est GFR (MDRD) Af Amer 121, Est GFR (MDRD) Non-Af 100, Uric Acid 5.9, AST 18, ALT 17 08/31/22 16:55: Blood Type Cancelled, Antibody Screen Cancelled 08/31/22 18:25: Blood Type B POSITIVE, Antibody Screen NEGATIVE Physical Exam Narrative clear amniotic fluid. no vaginal bleeding. ctx palpating moderate SVE 2/50/-2, midposition Const alert, oriented x3 and no apparent distress Chest inspection of chest normal Resp normal respiratory effort NST FHR Rate Baby A Baseline: 130 Variability:: Moderate Accelerations:: 15 x 15 Decelerations:: None NST Reactive:: Yes FHR Category:: Category I Assessment & Plan (1) Encounter for induction of labor: COMMENT: s/p cytotec x3 PLAN: currently david too frequently for pit/cytotec. trivedi 5 plan to recheck cervical exam around 10am. ambulate/peanut ball -pain management per request Dr. Du updated in POC. agrees with midwifery co-management and above. (2) Gestational hypertension: COMMENT: plan IOL, labs drawn (3) GBS (group B streptococcus) UTI complicating : COMMENT: PCN during labor
[2022-09-01] MEDS: LACTATED RINGERS 500 ML 999 ML IV ×2 (12:02→17:09)
[2022-09-01] MEDS: Oxytocin 15 Units/NS 250ml 15 UNITS/250 ML IV.SOLN 2 UNITS IV (12:15)
[2022-09-01] MEDS: fentaNYL-bupivacaine (epidural) 100 ML BAG EPIDURAL ×2 (12:56→17:36)
[2022-09-01] MEDS: Penicillin G 3,000,000 Units 50 ML 100 UNITS IV ×2 (13:25→18:29)
[2022-09-01] MEDS: Lactated Ringers 1,000 ML 200 ML IV (17:08)
--- NOTE | 2022-09-01 19:42 | PCM.PN.BLA ---
Progress Note assessment due to recurrent periodic variables, checked and 9 cm and therefore will stop pushing and start amnioinfusion. cat II, exp management
[2022-09-01] MEDS: Amnioinfusion- 0.9% NS 1,000 ML IV.SOLN. 1000 ML INTRA-UTER (19:50)
--- NOTE | 2022-09-01 23:27 | EX.PCM.OBRPT ---
Assessment & Plan (1) (spontaneous vaginal delivery): COMMENT: IOL PEC. . boy. LC PLAN: Dr. Du updated on delivery. BP stable post delivery Maternal Data Information LEYDI Calculator Estimated Delivery Date Method Current WG Current Estimate 09/10/22 LMP (Uncertain) 38w 5d Other Estimates 09/10/22 Ultrasound #1 38w 5d Vaginal Delivery Maternal Presentation Maternal Presentation: Medically Indicated Induction (PEC) Type of Induction: Pitocin and Cytotec Operative Information Date of Procedure: 09/01/22 Pre-Operative Diagnosis: Post-Operative Diagnosis: Surgery / Procedure Performed: Spontaneous Vaginal Delivery Type of Anesthesia: Epidural Drain: Lira to straight drain Estimated Blood Loss: 700 Time of Delivery: 22:22 Findings Description of Procedure: Patient began pushing and delivered the head in the POLINA presentation. The head was delivered atraumatically and a loose nuchal cord ?1 was identified and easily reduced over the 's head. The anterior and posterior shoulders delivered without complication followed by the rest of the and the infant was placed on the maternal abdomen. Delayed cord clamping was employed for approximately 60 seconds. Cord was clamped and cut and gentle traction was applied to the cord and the placenta delivered spontaneously immediately following it was noted to be intact with three-vessel cord. The perineum and vagina were inspected and 2nd degree laceration with pulsating vessel, repaired in usual fashion, figure of 8 for hemostasis. EBL was 700, IV pitocin provided. fundus firm and hemodynamically stable Patient and tolerated delivery well, entered recovery phase bonding skin to skin. Presentation: POLINA Amniotic Membrane Rupture Type: Spontaneous Time of Membrane Rupture: 16hrs Amniotic Fluid Description: Clear Placental Delivery Description: Spontaneous Placenta Disposition: [facility] Cord Vessel Description: 3 Vessels Cord Entanglement: Around neck x 1, loose Nuchal Cord Compression: With compression Infant A Gender: Male (1 minute): 8 (5 minute): 9 Delayed Cord Clamping: Yes Post Vaginal Delivery Medications Given After Delivery: IV Pitocin Episiotomy Description: 2nd degree Laceration: Left Mediolateral and 2nd degree Complication Complications: - (EBL 700) Multi Select Codes Urinary/Genital Urinary/Genital CPT Codes: 95448 Vaginal Delivery global pkg (CNM delivery)
[2022-09-02] VITALS (13 sets, daily range): BP systolic 133–155; BP diastolic 63–89; PULSE 75–125; RESP 15–18; TEMP 36.1–36.6; O2SAT 96–98
[2022-09-02] MEDS: Oxytocin 15 Units/NS 250ml 15 UNITS/250 ML IV.SOLN 83 UNITS IV (00:20)
--- NOTE | 2022-09-02 03:26 | NURSING ---
epidural cath removed. blue tip intact.
[2022-09-02 05:45] LABS: Hemoglobin 8.7 g/dL (12.0-15.0); Mean Corp Hgb Conc 34.8 g/dL (32-36); Mean Corpuscular Hgb 30.2 pg (27.0-32.0); Mean Corpuscular Volume 86.8 fL (81-99); Mean Platelet Vol. 10.8 fl (6.2-12.0); Platelet Count 204 K/mm3 (150-450); RBC Distribution Width CV 13.5 % (11.6-14.6); RBC Distribution Width SD 42.1 fl (35.1-43.9); Red Blood Count 2.88 M/mm3 (4.2-5.4); White Blood Count 22.4 K/mm3 (4.4-11.0)
--- NOTE | 2022-09-02 07:23 | PCM.PN.OB ---
Subjective Subjective Patient doing well without complaints. Tolerating PO. Ambulating and voiding without difficulty. feeding well. Denies chest pain, shortness of breath, calf pain/swelling, fevers, chills, lightheadedness. Objective Data Objective Data Vital Signs: Vital Signs Temp Pulse Resp BP Pulse Ox O2 Del Method 98.7 F 113 H 18 137/63 H 100 Room Air 09/01/22 23:00 09/02/22 03:23 09/02/22 03:23 09/02/22 03:23 09/01/22 18:52 09/02/22 03:23 Oxygen Delivery Method Room Air Weight: 107.6 kg Body Mass Index (BMI) 40.7 Intake & Output: Intake and Output for Last 24 Hours 08/31/22 09/01/22 09/02/22 23:59 23:59 23:59 Intake Total 3238.70 / 3238.70 466.3 / 466.3 Output Total 400 / 400 400 / 400 Balance 2838.70 / 2838.70 66.3 / 66.3 Lab / Micro Data Result Diagrams: 09/02/22 05:35 08/31/22 16:55 Labs: Laboratory Results - last 24 hr 09/02/22 05:35: WBC 22.4 H, RBC 2.88 L, Hgb 8.7 L, Hct 25.0 L, MCV 86.8, MCH 30.2, MCHC 34.8 D, RDW Std Deviation 42.1, RDW Coeff of Willi 13.5, Plt Count 204, MPV 10.8 ROS Constitutional Constitutional: Reports systems reviewed and no addt'l complaints, except as documented Cardiovascular Cardiovascular: Reports systems reviewed and no addt'l complaints, except as documented Respiratory/Chest Respiratory/Chest: Reports systems reviewed and no addt'l complaints, except as documented Gastrointestinal Gastrointestinal: Reports systems reviewed and no addt'l complaints, except as documented Physical Exam Const alert, oriented x3 and no apparent distress HEENT Head and Scalp: atraumatic Resp normal respiratory effort GI soft to palpation and non-tender Bimanual Exam - Vag & Uterus: uterus non-tender Uterus Palpation: uterus fundus firm (below Umbilicus) Assessment & Plan (1) (spontaneous vaginal delivery): COMMENT: IOL PEC. . boy. LC PLAN: Plan s/p PPD # 1 1. routine post delivery care 2. breast feeding- support given 3. rh positive 4. rubella immune
--- NOTE | 2022-09-02 07:43 | PCM.PN.OB ---
Subjective Subjective Patient doing well without complaints. Tolerating PO. Ambulating. Has not voided yet. Feeding well. Denies chest pain, shortness of breath, calf pain/swelling, fevers, chills, lightheadedness. Objective Data Objective Data Vital Signs: Vital Signs Temp Pulse Resp BP Pulse Ox O2 Del Method 98.7 F 113 H 18 137/63 H 100 Room Air 09/01/22 23:00 09/02/22 03:23 09/02/22 03:23 09/02/22 03:23 09/01/22 18:52 09/02/22 03:23 Oxygen Delivery Method Room Air Weight: 237 lb 3.478 oz Body Mass Index (BMI) 40.7 Intake & Output: Intake and Output for Last 24 Hours 08/31/22 09/01/22 09/02/22 23:59 23:59 23:59 Intake Total 3238.70 / 3238.70 466.3 / 466.3 Output Total 400 / 400 400 / 400 Balance 2838.70 / 2838.70 66.3 / 66.3 Lab / Micro Data Result Diagrams: 09/02/22 05:35 08/31/22 16:55 Labs: Laboratory Results - last 24 hr 09/02/22 05:35: WBC 22.4 H, RBC 2.88 L, Hgb 8.7 L, Hct 25.0 L, MCV 86.8, MCH 30.2, MCHC 34.8 D, RDW Std Deviation 42.1, RDW Coeff of Willi 13.5, Plt Count 204, MPV 10.8 Physical Exam Const alert and oriented x3 HEENT normocephalic Eyes PERRL Neck full ROM Resp normal respiratory effort GI soft to palpation GI Narrative: FF below U Assessment & Plan (1) (spontaneous vaginal delivery): COMMENT: IOL PEC. . boy/Akil. LC (2) Gestational hypertension: PLAN: Plan s/p PPD #1 1. routine post delivery care 2. breast feeding- support given 3. rh positive 4. rubella immune 5. Bp trending down, will continue to monitor
[2022-09-02] MEDS: Naproxen 500 MG Tablet PO ×2 (08:51→20:53)
--- NOTE | 2022-09-02 19:30 | NURSING ---
BP 155/63 at 1905. Pt verbalized that she felt like it was due to her many visitors in her room. Evaluated pt for s/s of pre-e. Denies SANDOVAL, nausea, epigastric pain, and blurred vision. Bilateral brachial and patellar reflexes +2 and clonus absent. Rechecked BP 15 minutes after visitors left. BP 145/89. Will continue to monitor BP.
[2022-09-02] MEDS: NIFEdipine 30 MG Tablet PO (20:53)
[2022-09-03 01:39] VITALS: BP 131/71; PULSE 76; RESP 15; TEMP 36.2; O2SAT 99
--- NOTE | 2022-09-03 07:52 | PCM.PN.OB ---
Subjective Subjective Patient doing well without complaints. Tolerating PO. Ambulating and voiding without difficulty. Feeding well. Denies chest pain, shortness of breath, calf pain/swelling, fevers, chills, lightheadedness. Objective Data Objective Data Vital Signs: Vital Signs Temp Pulse Resp BP Pulse Ox O2 Del Method 97.2 F L 76 15 131/71 H 99 Room Air 09/03/22 01:39 09/03/22 01:39 09/03/22 01:39 09/03/22 01:39 09/03/22 01:39 09/03/22 01:39 Oxygen Delivery Method Room Air Weight: 237 lb 3.478 oz Body Mass Index (BMI) 40.7 Intake & Output: Intake and Output for Last 24 Hours 09/01/22 09/02/22 09/03/22 23:59 23:59 23:59 Intake Total 3238.70 / 3238.70 466.3 / 466.3 Output Total 400 / 400 1000 / 1000 Balance 2838.70 / 2838.70 -533.7 / -533.7 Lab / Micro Data Attestation: I reviewed the patient's lab results. Result Diagrams: 09/02/22 05:35 08/31/22 16:55 ROS Constitutional Constitutional: Reports as per HPI Cardiovascular Cardiovascular: Reports as per HPI Respiratory/Chest Respiratory/Chest: Reports as per HPI Gastrointestinal Gastrointestinal: Reports as per HPI Genitourinary Genitourinary: Reports as per HPI Musculoskeletal Musculoskeletal: Reports as per HPI Integumentary Integumentary: Reports systems reviewed and no addt'l complaints, except as documented Neurologic Neurologic: Reports systems reviewed and no addt'l complaints, except as documented Psychiatric Psychiatric: Reports systems reviewed and no addt'l complaints, except as documented Hematologic/Lymphatic Hematologic/Lymphatic: Reports none Allergic/Immunologic Allergic/Immunologic: Reports none Physical Exam Const alert, oriented x3 and no apparent distress General Appearance: cooperative HEENT normocephalic Eyes PERRL Neck full ROM Lymph Lymphatic: no lymphadenopathy noted Chest inspection of chest normal Resp normal respiratory effort, normal air movement, no retractions and no use of accessory muscles Cardio regular rate and regular rhythm GI GI Narrative: fundus firm at u, mild lochia rubra, no clots Back/Spine normal ROM Extremity normal to inspection and full ROM Skin no rashes or lesions noted Neuro oriented x3 Psych mental status grossly normal Assessment & Plan (1) (spontaneous vaginal delivery): COMMENT: IOL PEC. . boy/Akil. LC (2) Gestational hypertension: COMMENT: procardia 30mg XL PO daily. will take BP at home, parameters given (3) Preeclampsia:
--- NOTE | 2022-09-03 07:55 | DCINST_ITS ---
Discharge Instructions Diet Discharge Diet: No restrictions Activity Discharge Activity: May Not Drive and May Shower May resume sexual activity in: 6 weeks Weight Bearing Status: Full weight bearing Dressing / Incision Call your doctor if your incision/area has: Sudden Increased Bleeding, Increased Pain/ Swelling and Foul Smelling Discharge Call your doctor if you observe: Fever of 101 or Higher, Numbness or Tingling, Change in Color, Inability to urinate, Inability to have a bowel movement, Using more than 1 pad per hour, Shortness of breath, Dizziness, Fainting spells, Chest pain, Calf discomfort and Uncontrolled pain Follow Up Care Please Follow Up With: Anuja Mccoy CNM When: 1-2 weeks blood pressures check 6 weeks , please call office to make an appointment. Congratulations on the of your baby! Test Results: Test results from this visit will be discussed in further detail at your follow- up appointment, if applicable. Discharge Plan Admission Admit Date/Time: 08/31/22 17:17 Attending Provider: Radhika Du Primary Care Provider: Charmaine Reyes Discharge Orders/Prescriptions Prescriptions: No Action prenat.vits,lázaro,vbf-faps-niscz Tablet 1 tab PO DAILY Referrals / Follow Up: Charmaine Reyes [Primary Care Provider] - Disposition Disposition (needs filled in before D/C Order can be placed): Home, Self Care
[2022-09-03 08:42] VITALS: BP 115/65; PULSE 79; RESP 16; TEMP 36.7
[2022-09-03] MEDS: NIFEdipine 30 MG Tablet PO (10:07)
--- NOTE | 2022-09-07 12:59 | NURSING ---
On follow up phone call mother doing well, no symptoms of High BP , really liked all the nurses
== END 2022-09-03 10:40 | disposition home or self-care (01) | DRG 807 ==
LOC: WPOUT 17:17 → WP 17:21
PROVIDERS: Registered Nurse; Admitting Provider Obstetrics & Gynecology; Referring Provider Obstetrics & Gynecology; Visit Provider Obstetrics & Gynecology
DX: O11.4 Pre-existing hypertension with pre-eclampsia, complicating childbirth (principal); Z37.0 Single live birth; O42.92 Full-term premature rupture of membranes, unspecified as to length of time between rupture and onset of labor; O69.1XX0 Labor and delivery complicated by cord around neck, with compression, not applicable or unspecified; O70.1 Second degree perineal laceration during delivery; O99.824 Streptococcus B carrier state complicating childbirth; Z3A.38 38 weeks gestation of pregnancy
CPT/HCPCS: 59025; 59050; 76815; 82565; 82570; 84156; 84450; 84460; 84550; 85027; 86850; 86900; 86901; 99218; J7030; J7120; A4216; G0378

== ENCOUNTER 2023-04-11 13:55 | Emergency (ER) | payer OTHER, SELFPAY ==
[2023-04-11 13:56] VITALS: BP 139/75; PULSE 73; RESP 16; TEMP 36.3; O2SAT 100; BMI 30.4
--- NOTE | 2023-04-11 14:27 | EKG12_ITS ---
Test Reason : Blood Pressure : / mmHG Vent. Rate : 070 BPM Atrial Rate : 070 BPM P-R Int : 140 ms QRS Dur : 086 ms QT Int : 410 ms P-R-T Axes : 064 085 052 degrees QTc Int : 442 ms Sinus rhythm with marked sinus arrhythmia Otherwise normal ECG Confirmed by BEATRIZ HODGSON, HEIDI ([id number]), industrial editor ALINA MORGAN ([id number]) on 04/12/2023 9:38:54 AM Referred By: PAYAL Confirmed By:HEIDI HENDERSON MD
[2023-04-11 14:53] LABS: Hematocrit 36.6 % (37-47); Hemoglobin 12.5 g/dL (12.0-15.0); Mean Corp Hgb Conc 34.2 g/dL (32-36); Mean Corpuscular Hgb 28.7 pg (27.0-32.0); Mean Corpuscular Volume 83.9 fL (81-99); Platelet Count 271 K/mm3 (150-450); RBC Distribution Width SD 40.2 fl (35.1-43.9); Red Blood Count 4.36 M/mm3 (4.2-5.4); White Blood Count 7.9 K/mm3 (4.4-11.0)
--- NOTE | 2023-04-11 14:58 | RAD_ITS ---
STUDY: X-RAY CHEST REASON FOR EXAM: Female, 23 years old. Dyspnea TECHNIQUE: PA and lateral views of the chest. COMPARISON: None. FINDINGS: EKG electrodes are seen. The lungs are clear and expanded. There is no demonstrated pleural abnormality. Normal size heart. Normal mediastinum and alice. Normal visualized pulmonary arteries. Normal visualized aortic arch and descending thoracic aorta. Normal visualized thoracic spine. Normal visualized ribs, clavicles, and shoulders. There is no demonstrated abnormality of the visualized soft tissue structures of the upper abdomen. RAD/Chest PA and Lateral IMPRESSION: Normal x-ray examination of the chest. Electronically Signed: Tanmay Curtis MD at 15:06 EDT ,
--- NOTE | 2023-04-11 15:00 | ED.VIS.DYS ---
HPI History of Present Illness Chief Complaint: Shortness of Breath Detail of Chief Complaint: Today Informant: patient and spouse/S.O. Onset/Context/Timing Onset: Today Context: sudden Timing: Continuous Quality: Positive for Dyspnea on exertion; Negative for Orthopnea, PND or Wheezing Current Severity: Mild Maximum Severity: Moderate Worsened by: - (Activity) Relieved by: Nothing Associated Symptoms Negative for cough, rhinorrhea, post nasal drip, ear pain, fever, sore throat, subjective, chills, sweats, clear sputum, white sputum, yellow sputum or green sputum Chest Pain: Positive for Continuous and Dull Narrative Narrative: Patient is a 23-year-old female who presents with dyspnea and mild chest pain. There is a component of component. She denies upper respiratory tract infectious symptoms. She denies fever or chills. Denies headache, visual, ocular auditory symptoms. Chest pain is central. Does not radiate. There is no associated nausea, vomiting or diaphoresis. She denies history of VTE. Denies leg pain, swelling discoloration. There is no family history of VTE. She denies black or maroon-colored stool. She is on hormonal therapy. PE Risk Factors: Negative for Cancer, OCP + Smoking + > 35, Prior DVT or PE, Recent immobilization, Recent surgery or Recent travel Prior similar symptoms: Yes (Not as severe or prolonged. Never sought medical attention) Recent Illness/Hospitalization: No PFSH PFS Medical History DUB (dysfunctional uterine bleeding) Pre-eclampsia Shingles Subcutaneous cyst (spontaneous vaginal delivery) Home Medications drospirenone 3 mg-ethinyl estradiol 0.03 mg tablet 1 tab PO DAILY #84 tabs 01/07/23 [Rx Last Taken Unknown] Allergy/AdvReac Type Severity Reaction Status Date / Time No Known Allergies Allergy Verified 04/11/23 13:57 Social History adopted: No household members: significant other number of children: 0 current occupational status: employed current occupation: [employer] Smoking Status: Never smoker alcohol intake: never substance use type: does not use do you feel safe at home: Yes additional social history: Tray PEREA ED Constitutional Constitutional ED: Denies chills, fever(s), sweats or weight loss Eyes Eyes: Denies blurry vision, change in vision or diplopia ENT ENT ED: Denies ear pain, rhinorrhea or sore throat Cardiovascular Cardiovascular: Reports chest pain; Denies orthopnea, palpitations, paroxysmal nocturnal dyspnea or racing heartbeat Respiratory/Chest Respiratory/Chest: Reports dyspnea and dyspnea on exertion; Denies cough, orthopnea, paroxysmal nocturnal dyspnea or sputum Gastrointestinal Gastrointestinal: Denies abdominal pain, constipation, diarrhea, melena, nausea or vomiting Genitourinary Genitourinary ED: Denies dysuria or hematuria Musculoskeletal Musculoskeletal: Denies arthralgias, back pain, myalgias or neck pain Neurologic Neurologic: Denies headache(s), paresthesias or weakness Psychiatric Psychiatric: Denies anxiety or depression Endocrine Endocrinology: Denies cold intolerance or heat intolerance Hematologic/Lymphatic Hematologic/Lymphatic: Denies easy bleeding or easy bruising EXAM Physical Exam Const Vital Signs: 04/11/23 13:56 04/11/23 14:01 Temperature 97.3 F L Temperature Source Temporal Pulse Rate 73 Respiratory Rate 16 Respiratory Effort Non-Labored Short of Breath Respiratory Depth Normal Respiratory Pattern Normal Blood Pressure 139/75 H Blood Pressure Mean 96 Pulse Ox 100 Oxygen Delivery Method Room Air Positive well nourished and well developed Constitutional Narrative: Blood pressure is unremarkable. General Appearance ED: well developed and NAD; Negative for pallor HEENT Reports moist mucous membranes HEENT Narrative: Head is normocephalic. Ears normal. Posterior pharynx is normal. atraumatic Eyes PERRL and EOMs intact bilaterally General Eye ED: Negative for pale conjunctiva or scleral icterus Neck no lymphadenopathy, supple, no meningeal signs and no JVD Resp normal respiratory effort and clear to auscultation bilaterally Resp Narrative: There is no pain outpatient of the chest. There is no crepitus. There is no rash Cardio regular rate, regular rhythm, S1 normal heart sound, S2 normal heart sound and no murmurs GI non-tender, non-distended and no masses Auscultation: normoactive bowel sounds Palpation: soft Back/Spine no CVA tenderness and normal to inspection Extremity normal to inspection Extremity Narrative: There is no asymmetry, swelling, discoloration, leg vein distention, palpable cords or tenderness along the distribution of the deep venous system. Neuro oriented x3, CN's II-XII intact bilaterally and no sensory deficits noted [place] Coma Scale: document GCS findings Spontaneous Obeys Commands Oriented 15 Sensorium / Orientation: alert Speech: speech normal Motor Exam: strength 5/5 throughout Psych mental status grossly normal Skin no wounds and skin turgor normal General Skin Exam: Negative for jaundice or pallor Lesions: no lesions Rashes: no rashes MDM MDM MDM Narrative Medical decision making narrative: EKG was obtained to evaluate for evidence of right heart strain. Chest x-ray to rule out pneumothorax or pneumonia. D-dimer since patient is not PERC negative. Lab Data Attestation: I reviewed the patient's lab results. Lab results narrative: CBC is normal. D-dimer is normal Labs: Laboratory Results - last 24 hr 04/11/23 14:45 WBC 7.9 RBC 4.36 Hgb 12.5 Hct 36.6 L MCV 83.9 MCH 28.7 MCHC 34.2 RDW Std Deviation 40.2 RDW Coeff of Willi 13.0 Plt Count 271 MPV 10.0 D-Dimer Quant (PE/DVT) < 0.27 L Radiography Chest X-Ray - ED: 2 View and Read by ED Physician (Independently reviewed interpreted by me at 1500 as negative. Cardiac silhouette and size normal. Lung parenchyma normal. Perihilar region normal. Osseous structures are normal.) Diagnostic Testing: Clinical Impression(s) from Imaging Studies Chest X-Ray 04/11/23 14:58 IMPRESSION: Normal x-ray examination of the chest. Electronically Signed: Tanmay Curtis MD at 15:06 EDT , EKG Initial EKG: Attestation: I personally reviewed and interpreted this EKG as follows: Interpretation: Sinus Rhythm (Heart rate is 70. UT interval is 140 ms. Cures duration 86 ms. QT duration 4 to 10 ms. [place] is normal. Other than sinus arrhythmia the EKG is normal.) Treatment and Re-Evaluation :: With normal vital signs, normal chest x-ray normal D-dimer and normal CBC patient was discharged home. She was informed the cause of her shortness of breath is unknown. Discharge Plan Triage Chief Complaint: Shortness of Breath ED Provider: Wale Lemus Dx/Rx/DC Orders Clinical Impression: Acute dyspnea, Chest pain Instructions: ED Chest Pain, Noncardiac, ED Dyspnea Prescriptions: No Action drospirenone-ethinyl estradiol 3-0.03 mg tablet 1 tab PO DAILY Qty: 84 3RF Primary Care Provider: Charmaine Reyes Referrals: Charmaine Reyes [Primary Care Provider] - 3-5 Days if not improving Disposition Disposition: Home, Self Care
[2023-04-11 15:13] LABS: D-Dimer Quantitative (DVT/PE) < 0.27 FEU/ug/m (0.27-0.49)
[2023-04-11 15:55] VITALS: PULSE 53; RESP 14; O2SAT 99
== END 2023-04-11 15:59 | disposition home or self-care (01) ==
PROVIDERS: Emergency Provider Emergency Medicine; Visit Provider Emergency Medicine
DX: R07.9 Chest pain, unspecified (principal); R06.09 Other forms of dyspnea
CPT/HCPCS: 71046; 85027; 85379; 93005; 99283; A4216

== ENCOUNTER → 2024-06-13 | Outpatient (CLI) | payer OTHER, SELFPAY | END | disposition home or self-care (01) | LOC: LABSPEC 14:22 | PROVIDERS: Referring Provider Nurse Practitioner Family; Visit Provider Nurse Practitioner Family | DX: N89.8 Other specified noninflammatory disorders of vagina (principal) | CPT/HCPCS: 87070; 87205 ==

== ENCOUNTER → 2024-09-03 | Outpatient (CLI) | payer SELFPAY | END | disposition home or self-care (01) | PROVIDERS: Referring Provider Nurse Practitioner Family; Visit Provider Nurse Practitioner Family | DX: N89.8 Other specified noninflammatory disorders of vagina (principal) | CPT/HCPCS: 87070; 87205 ==

== ENCOUNTER → 2024-11-01 | Outpatient (CLI) | payer OTHER, SELFPAY ==
[2024-11-09 08:52] LABS: HPV Reflexed? NOT INDICATED
== END | disposition home or self-care (01) ==
PROVIDERS: Referring Provider Advanced Practice Midwife; Visit Provider Advanced Practice Midwife
DX: N93.9 Abnormal uterine and vaginal bleeding, unspecified (principal); Z12.4 Encounter for screening for malignant neoplasm of cervix
CPT/HCPCS: 36415; 84443; 88175; G0145

== ENCOUNTER → 2024-11-08 | Outpatient (CLI) | payer OTHER, SELFPAY ==
--- NOTE | 2024-11-08 12:06 | US_ITS ---
PROCEDURE: TRANSVAGINAL NON- REASON FOR EXAM: irregular vaginal bleeding TECHNIQUE: Grayscale and color/spectral doppler transvaginal pelvic ultrasound was performed. COMPARISON: Unavailable FINDINGS: Uterus: 9.0 x 4.8 x 3.7 cm, Anteverted, unremarkable.. Endometrium: 9 mm, vaguely trilaminar proliferative phase appearance. Cervix: Unremarkable. Right ovary: 2.0 x 2.6 x 2.5 cm (estimated volume 7 mL), unremarkable. Left ovary: 3.4 x 2.4 x 2.3 cm (estimated volume 10 mL), unremarkable. Free fluid: None visualized. US/Transvaginal Non- IMPRESSION: 1. No acute abnormality or findings which might explain the reported symptoms. 2. Additional description as above. Reading Location: [id number]
== END | disposition home or self-care (01) ==
LOC: US 12:01
PROVIDERS: Referring Provider Advanced Practice Midwife; Visit Provider Advanced Practice Midwife
DX: N93.9 Abnormal uterine and vaginal bleeding, unspecified (principal)
CPT/HCPCS: 76830

== ENCOUNTER → 2025-04-09 | Outpatient (CLI) | payer SELFPAY ==
--- OUTSIDE RECORDS SUMMARY | 2025-04-09 07:30 | XMS RPT_ITS | CCD ---
Author Organization [facility] Care Team Providers Care Environmental Air Specialist Name Role Phone Reyes, Charmaine Primary Care Provider Unavailab Shankar AIRPLANE CHARTER CLERK, AIRPLANE CHARTER CLERK-Sarah Slade Attending Provider [phone] Dr. Nesha Mead Attending Provider [phone] Reyes, Charmaine Referring Provider Unavailable Reyes, Charmaine Primary Care Provider Unavailab Dr. Radhika Madden Attending Provider [phone] Reyes, Charmaine Primary Care Provider Unavailab maria d Reyes, Charmaine Referring Provider Unavailable Dr. Nesha Mead Attending Provider [phone] Dr. Radhika Du Attending Provider [phone] PJ Mccoy Attending Provider [phone] Dr. Nesha Mead Other Provider Dr. Radhika Du Other Provider PJ Mccoy Other Provider Dr. Radhika Du Admit Provider [phone] Dr. Radhika Du Referring Provider [phone] Annette AIRPLANE CHARTER CLERK, GISELA Slade Attending Provider [phone] Reyes, Charmaine Primary Care Unavailable Reyes, Charmaine Referring Unavailable Shayla Bhatt Attending Unavailable Reyes, Charmaine Primary Care Unavailable Reyes, Charmaine Referring Unavailable Shayla Bhatt Attending Unavailable Reyes, Charmaine Primary Care Unavailable Shayla Bhatt Attending Unavailable Shayla Bhatt Referring Unavailable Reyes, Charmaine Primary Care Unavailable Shayla Bhatt Attending Unavailable Shayla Bhatt Referring Unavailable Yin Raymundo Attending Unavailable Yin Raymundo Referring Unavailable Reyes, Charmaine Primary Care Unavailable Yin Raymundo Attending Unavailable Yin Raymundo Referring Unavailable Charmaine Reyes Primary Care Unavailable Yin Raymundo Attending Unavailable Charmaine Reyes Referring Unavailable Charmaine Reyes Primary Care Unavailable Charmaine Reyes Primary Care Provider Unavailab Charmaine Grimes Referring Provider Unavailable Shayla George Attending Provider [phone] Shayla George Referring Provider [phone] Yin Raymundo CNM Attending Provider [phone] Yin Raymundo CNM Referring Provider [phone] Medications Completed/Discontinued Medications Medication Drug Class(es) Dates Sig (Normalized) Sig (Original) amoxicillin 500 mg / clavulanate 125 mg oral tablet (11 sources) Penicillin-class Antibacterial Start: 02-26-2022 End: 03-26-2022 Amoxicillin-Pot Clavulanate (Augmentin) 500-125 mg tablet Discontinued 1 {tbl} PO TWICE A DAY February 26, 2022 12:00am March 26, 2022 9:24am Start: 08-05-2021 End: 08-26-2021 Amoxicillin-Pot Clavulanate 875-125 mg tablet Discontinued 1 {tbl} PO TWICE A DAY August 05, 2021 1:00am August 26, 2021 5:33pm Start: 08-05-2021 End: 08-26-2021 take 1 tablet by mouth twice daily Amoxicillin-Pot Clavulanate Discontinued 1 TABLET PO TWICE A DAY August 05, 2021 1:00am August 26, 2021 5:33pm azithromycin 250 mg oral tablet (9 sources) Macrolide Antimicrobial Start: 01-07-2023 End: 01-12-2023 take 2 tablets by mouth once daily, then take 1 tablet by mouth once daily at mealtime Azithromycin 250 mg tablet Discontinued 250 mg PO daily 02 07January 07, 2023 5:04pm January 11, 2023 12:00am January 12, 2023 12:04am 2 po qd for 1 day then 1 po qd for 4 days with food or after eating Start: 08-26-2021 End: 08-31-2021 take 2 tablets by mouth once daily, then take 1 tablet by mouth once daily at mealtime Azithromycin 250 mg tablet Discontinued 250 mg PO daily 02 07August 26, 2021 1:00am August 30, 2021 1:00am August 31, 2021 1:01am 2 po qd for 1 day then 1 po qd for 4 days with food or after eating BCP (6 sources) Start: 09-07-2019 End: 09-24-2019 BCP Discontinued PO September 07, 2019 12:00am September 24, 2019 4:39pm Start: 09-07-2019 End: 09-24-2019 BCP Discontinued PO September 07, 2019 1:00am September 24, 2019 5:39pm cefdinir 300 mg oral capsule (6 sources) Cephalosporin Antibacterial Start: 12-30-2021 End: 02-08-2022 take 1 capsule by mouth twice daily Cefdinir 300 mg capsule Discontinued 300 mg PO TWICE A DAY December 30, 2021 12:00am February 08, 2022 3:23pm Drospirenone-Eth inyl Estradiol (15 sources) Progestin, Estrogen Start: 01-07-2023 End: 10-18-2023 Drospirenone-Ethin yl Estradiol 3-0.03 mg tablet Discontinued 1 {tbl} PO DAILY January 07, 2023 5:01pm October 18, 2023 10:32am Start: 01-07-2023 take 1 tablet by sharri once daily Drospirenone-Ethinyl Estradiol Active 1 TABLET PO DAILY January 07, 2023 5:01pm Start: 09-24-2019 End: 08-05-2021 Drospirenone-Ethinyl Estradi ol 3-0.03 mg tablet Discontinued 1 {tbl} PO DAILY September 24, 2019 5:41pm August 05, 2021 9:24pm Start: 09-24-2019 End: 08-05-2021 take 1 tablet by mouth once daily Drospirenone-Ethinyl Estradiol Discontinued 1 TABLET PO DAILY September 24, 2019 4:41pm August 05, 2021 8:24pm Start: 09-24-2019 End: 08-05-2021 take 1 tablet by mouth once daily Drospirenone-Ethinyl Estradiol Discontinued 1 TABLET PO DAILY September 24, 2019 5:41pm August 05, 2021 9:24pm Start: 09-24-2019 End: 09-24-2019 Drospirenone-Ethinyl Estradi ol 3-0.03 mg tablet Discontinued 1 {tbl} PO DAILY September 24, 2019 1:00am September 24, 2019 5:43pm Start: 09-24-2019 End: 09-24-2019 take 1 tablet by mouth once daily Drospirenone-Ethinyl Estradiol Discontinued 1 TABLET PO DAILY September 24, 2019 1:00am September 24, 2019 5:43pm 21 day ethinyl estradiol 0.419686 mg/hr / etonogestrel 0.005 mg/hr vaginal system (2 sources) Progestin, Estrogen Start: 04-21-2023 End: 10-18-2023 Etonogestrel-Ethinyl Estradiol (Nuvaring) 0.12-0.015 mg/24 hr ring Discontinued 1 NMA VAGINAL every 4 weeks April 21, 2023 12:00am October 18, 2023 10:32am leave in place for 3 weeks of a 4-week cycle 24 hr ferrous sulfate 142 mg extended release oral tablet (4 sources) Start: 09-03-2022 End: 01-07-2023 take 1 tablet by mouth twice daily Ferrous Sulfate (Slow Fe) 142 mg (45 mg iron) tablet extended release Discontinued 142 mg PO TWICE A DAY September 03, 2022 1:00am January 07, 2023 5:00pm fluconazole 100 mg oral tablet (6 sources) Azole Antifungal Start: 09-03-2024 End: 11-01-2024 Fluconazole 100 mg tablet Discontinued 100 mg PO Q72H September 03, 2024 4:43pm November 01, 2024 2:45pm Take 1 tab every 72 hours x 3 doses. Start: 06-13-2024 End: 09-03-2024 Fluconazole 150 mg tablet Di scontinued 150 mg PO Every 3 Days July 24, 2024 11:31am September 03, 2024 4:47pm may repeat second dose 72 hrs after first dose if symptoms persist naproxen 250 mg oral tablet (4 sources) Nonsteroidal Anti-inflammatory Drug Start: 09-03-2022 End: 09-09-2022 take 250-500 mg by mouth every eight hours as needed Naproxen 250 mg tablet Discontinued 250 - 500 mg PO EVERY 8 HOURS NEEDED September 03, 2022 1:00am September 09, 2022 2:33pm 24 hr NIFEdipine 30 mg extended release oral tablet (8 sources) Dihydropyridine Calcium Channel Inez Start: 09-03-2022 End: 10-11-2022 take 1 tablet by mouth once daily Nifedipine 30 mg tablet extended release Discontinued 30 mg PO DAILY September 03, 2022 1:00am October 11, 2022 12:38pm Start: 09-03-2022 End: 10-11-2022 take 1 tablet by mouth once daily Nifedipine (Procardia Xl) 30 mg tablet extended release 24hr Discontinued 30 mg PO DAILY September 03, 2022 1:00am October 11, 2022 12:38pm norethindrone 0.35 mg oral tablet (3 sources) Start: 10-11-2022 End: 01-07-2023 take 1 tablet by mouth once daily Norethindrone (Contraceptive) 0.35 mg tablet Discontinued 0.35 mg PO DAILY October 11, 2022 1:00am January 07, 2023 5:03pm predniSONE 20 mg oral tablet (6 sources) Start: 12-30-2021 End: 02-08-2022 take 2 tablets by mouth once daily Prednisone 20 mg tablet Discontinued 40 mg PO DAILY December 30, 2021 12:00am February 08, 2022 3:23pm Start: 12-30-2021 End: 02-08-2022 take 40 mg by mouth once daily Prednisone Discontinued 40 MG PO DAILY December 30, 2021 12:00am February 08, 2022 3:23pm Prenat.Vits,Candelario,Gzf-Ryjb-Afv ic (4 sources) Start: 02-08-2022 End: 01-07-2023 take 1 tablet by mouth once daily Prenat.Vits,Candelario,Rkf-Baoz-Nuzzv Discontinued 1 TABLET PO DAILY February 08, 2022 12:00am January 07, 2023 5:00pm Start: 02-08-2022 take 1 tablet by sharri th once daily Prenat.Vits,Candelario,Mub-Bnui-Sedrn Active 1 TABLET PO DAILY February 07, 2022 11:00pm Start: 02-08-2022 take 1 tablet by sharri th once daily Prenat.Vits,Candelario,Muy-Zrke-Yzmvr Active 1 TABLET PO DAILY February 08, 2022 12:00am Prenat.Vits,Candelario,Ndp-Hzhc-Kqx ic tablet (2 sources) Start: 02-08-2022 End: 01-07-2023 Prenat.Vits,Candelario,Hgx-Mfbe-Bsl ic tablet Discontinued 1 {tbl} PO DAILY February 08, 2022 12:00am January 07, 2023 5:00pm valACYclovir 1000 mg oral tablet (6 sources) Herpesvirus Nucleoside Analog DNA Polymerase Inhibitor, Herpes Simplex Virus Nucleoside Analog DNA Polymerase Inhibitor, Herpes Zoster Virus Nucleoside Analog DNA Polymerase Inhibitor Start: 02-07-2020 End: 02-14-2020 Valacyclovir 1 gram tablet Discontinued 1000 mg PO THREE TIMES A DAY 25 03February 07, 2020 12:00am February 13, 2020 12:00am February 14, 2020 12:02am Start: 02-07-2020 End: 02-14-2020 take 1000 mg by mouth three times daily Valacyclovir Discontinued 1000 MG PO THREE TIMES A DAY 25 03February 07, 2020 12:00am February 14, 2020 12:02am Problems Problem Classification Problem Date Documented Date Episodic/Chronic Contraceptive and procreative management (2 sources) Patient encounter status; Translations: [Encounter for contraceptive management, unspecified] 04-21-2023 Episodic Hypertension complicating ; childbirth and the puerperium (10 sources) -induced hypertension; Translations: [Gestational [-induced] hypertension without significant proteinuria, unspecified trimester] Episodic Comment on above: procardia 30mg XL PO daily. will take BP at home, parameters given Immunizations and screening for infectious disease (8 sources) At risk for infection; Translations: [Contact with and (suspected) exposure to Zika virus] Episodic Comment on above: Went to [place]. Jeffery es mosquito bites. Consider testing with NOB labs Nonspecific chest pain (3 sources) Chest pain; Translations: [Chest pain, unspecified] 04-11-2023 Episodic Other circulatory disease (4 sources) Elevated blood-pressure reading without diagnosis of hypertension; Translations: [Elevated blood-pressure reading, without diagnosis of hypertension] 08-31-2022 Episodic Comment on above: sent to L&D to JENELLE w ork up. increased swelling/ mild headache Other circulatory disease (2 sources) Elevated blood-pressure reading, without diagnosis of hypertension; Translations: [Elevated blood pressure reading without diagnosis of hypertension] Episodic Other complications of (5 sources) Urinary tract infection in ; Translations: [Unspecified infection of urinary tract in , unspecified trimester] 09-02-2022 Episodic Comment on above: PCN during labor Other complications of (14 sources) Unspecified infection of urinary tract in , unspecified trimester; Translations: [Infections of genitourinary tract in , unspecified as to episode of care or not applicable] Episodic Other female genital disorders (13 sources) Abnormal uterine bleeding; Translations: [Other specified abnormal uterine and vaginal bleeding] 01-07-2023 Chronic Other female genital disorders (1 source) Abnormal uterine and vaginal bleeding, unspecified; Translations: [Abnormal uterine and vaginal bleeding, unspecified] Onset: 11-21-2024 Chronic Other female genital disorders (1 source) Other specified noninflammatory disorders of vagina; Translations: [Other specified noninflammatory disorders of vagina] Onset: 11-01-2024 Episodic Other female genital disorders (4 sources) Vaginal discharge; Translations: [Other specified noninflammatory disorders of vagina] 06-13-2024 Episodic Other lower respiratory disease (3 sources) Dyspnea; Translations: [Dyspnea, unspecified] 04-11-2023 Episodic Other and delivery including normal (20 sources) Normal ; Translations: [Encounter for supervision of normal first , unspecified trimester] Episodic Comment on above: s/p cytotec x3 PRR LEYDI:09/19/22 boy Fiance:Derian ALMANZAR. . boy/Grge tnak. LC declined genetic, nt d, and carrier screen. nl anatomy Other skin disorders (2 sources) Eruption; Translations: [Rash and other nonspecific skin eruption] 06-13-2024 Episodic Other upper respiratory infections (3 sources) Maxillary sinusitis; Translations: [Chronic maxillary sinusitis] 01-07-2023 Chronic Otitis media and related conditions (3 sources) Otitis media; Translations: [Otitis media, unspecified, left ear] 01-07-2023 Episodic Viral infection (8 sources) Herpes zoster; Translations: [Zoster without complications] Episodic Results Test Name Value Interpretation Reference Range Facility PAP I-G w/rfx hrHPV-Aptimaon 11-08-2024 ADEQ Comment Normal . [facility] Comment on above: Order Comment: Speci men Comment: [id number] Specimen Comment: Source.............Cervix Specimen Comment: LMP / Prev Treat...[id number] Specimen Comment: No. of containers..01 ThinPrep Vial Result Comment: Sati sfactory for evaluation. Endocervical and/or squamous metaplastic cells (endocervical component) are present. Performed By: #### L 7400.0353 #### [facility] [address] [place], [place], [id number] COMM . Normal . [facility] Comment on above: Order Comment: Speci men Comment: [id number] Specimen Comment: Source.............Cervix Specimen Comment: LMP / Prev Treat...[id number] Specimen Comment: No. of containers..01 ThinPrep Vial Performed By: #### L 7400.0353 #### [facility] [address] [place], [place], [id number] COMMENT Comment Normal . [facility] Comment on above: Order Comment: Speci men Comment: [id number] Specimen Comment: Source.............Cervix Specimen Comment: LMP / Prev Treat...[id number] Specimen Comment: No. of containers..01 ThinPrep Vial Result Comment: This liquid based ThinPrep(R) pap test was screened with the use of an image guided system. Performed By: #### L 7400.0353 #### [facility] [address] [place], [place], [id number] DIAG Comment Normal . [facility] Comment on above: Order Comment: Speci men Comment: [id number] Specimen Comment: Source.............Cervix Specimen Comment: LMP / Prev Treat...[id number] Specimen Comment: No. of containers..01 ThinPrep Vial Result Comment: NEGA TIVE FOR INTRAEPITHELIAL LESION OR MALIGNANCY. THIS SPECIMEN WAS RESCREENED PART OF OUR CONDUCTOR YARD PROGRAM. Performed By: #### L 7400.0353 #### [facility] [address] [place], [place], [id number] HPV RFLX Comment Normal . [facility] Comment on above: Order Comment: Speci men Comment: [id number] Specimen Comment: Source.............Cervix Specimen Comment: LMP / Prev Treat...[id number] Specimen Comment: No. of containers..01 ThinPrep Vial Result Comment: The HPV DNA reflex criteria were not met with this specimen result therefore, no HPV testing was performed. Performed at: [address] [id number] Hide Paster: Lizz Rudd MD, Phone: [phone] Performed By: #### L 7400.0353 #### [facility] [address] [place], [address] PAPSMR Comment Normal . [facility] Comment on above: Order Comment: Speci men Comment: [id number] Specimen Comment: Source.............Cervix Specimen Comment: LMP / Prev Treat...[id number] Specimen Comment: No. of containers..01 ThinPrep Vial Result Comment: The Pap smear is a screening test designed to aid in the detection of premalignant and malignant conditions of the uterine cervix. It is not a diagnostic procedure and should not be used as the sole means of detecting cervical cancer. Both false-positive and false-negative reports do occur. Performed By: #### L 7400.0353 #### [facility] [address] [place], [place], [id number] PERFORM Comment Normal . [facility] Comment on above: Order Comment: Speci men Comment: [id number] Specimen Comment: Source.............Cervix Specimen Comment: LMP / Prev Treat...[id number] Specimen Comment: No. of containers..01 ThinPrep Vial Result Comment: Colin Diana, Ceramics Test Engineer (ASCP) Performed By: #### L 7400.0353 #### [facility] [address] [place], [address] QC REV Comment Normal . [facility] Comment on above: Order Comment: Speci men Comment: [id number] Specimen Comment: Source.............Cervix Specimen Comment: LMP / Prev Treat...[id number] Specimen Comment: No. of containers..01 ThinPrep Vial Result Comment: Lina Sr, Ceramics Test Engineer (ASCP) Performed By: #### L 7400.0353 #### [facility] [address] [place], [place], [address] Transvaginal Non-on 11-08-2024 Transvaginal Non- [facility] [address] [place], [place] [address] Transvaginal Non- MR#: [id number] Acct: [id number] Name: SHAYLA COOPER Rep #: [id number] : 2000 F 24 From: Rene Davey MD PCP: Charmaine Reyes Status: REG CLI Study: Transvaginal Non- Date of Exam: Exam# [id number] Ordering Dr: Yin Raymundo CNM PROCEDURE: TRANSVAGINAL NON- REASON FOR EXAM: irregular vaginal bleeding TECHNIQUE: Grayscale and color/spectral doppler transvaginal pelvic ultrasound was performed. COMPARISON: Unavailable FINDINGS: Uterus: 9.0 x 4.8 x 3.7 cm, Anteverted, unremarkable.. Endometrium: 9 mm, vaguely trilaminar proliferative phase appearance. Cervix: Unremarkable. Right ovary: 2.0 x 2.6 x 2.5 cm (estimated volume 7 mL), unremarkable. Left ovary: 3.4 x 2.4 x 2.3 cm (estimated volume 10 mL), unremarkable. Free fluid: None visualized. US/Transvaginal Non- IMPRESSION: 1. No acute abnormality or findings which might explain the reported symptoms. 2. Additional description as above. Reading Location: [facility] CC: PJ Raymundo; Charmaine Reyes Grey Tender: Signed Normal [facility] Cytogenetics Technologist Cyto stain Nom (C vx/Vag) [ID]Ordered By: Yin Raymundo on 11-01-2024 Pap Smear Performed By Comment . [facility] Comment on above: Brett Diana, Cytotec hnologist (ASCP) Cytology report Cyto stain D oc (Cvx/Vag)Ordered By: Yin Raymundo on 11-01-2024 Thin Prep Pap Smear Comment . [facility] Comment on above: The Pap smear is a s creening test designed to aid in thedetection of premalignant and malignant conditions of theuterine cervix. It is not a diagnostic procedure andshould not be used as the sole means of detecting cervicalcancer. Both false-positive and false-negative reports dooccur. Image-guided ThinPrep PapOrd ered By: Yin Raymundo on 11-01-2024 Pap Smear Note Comment . [facility] Comment on above: This liquid based Th inPrep(R) pap test was screened withthe use of an image guided system. Image-guided liquid-based Pa pOrdered By: Yin Raymundo on 11-01-2024 Pap Smear Diagnosis Comment . [facility] Comment on above: NEGATIVE FOR INTRAEP ITHELIAL LESION OR MALIGNANCY.THIS SPECIMEN WAS RESCREENED PART OF OUR CONDUCTOR YARD PROGRAM. Image-guided liquid-based ce rvical Pap w high-risk HPV+reflex to HPV 16+18Ordered By: Yin Raymundo on 11-01-2024 Human Papillomavirus Screen Comment . [facility] Comment on above: The HPV DNA reflex sarah reed were not met with this specimenresult therefore, no HPV testing was performed.Performed at: [address] [id number] Director: Lizz Rudd MD, Phone: [phone] No Panel InformationOrdered By: Yin Raymundo on 11-01-2024 Pap Smear QC Review Comment . [facility] Comment on above: Sarah More ytotechnologist (ASCP) Glass Science Engineer Office Visit Reporton 11-01-2024 Glass Science Engineer Office Visit Report [facility] [address] [place] [address], [address] [place] [address] OFFICE VISIT Date of Service: 11/01/24 MR#: [id number] Acct: [id number] Name: SHAYLA COOPER Rep #: [id number] : 2000 Provider: PJ Gonzalez ams Age/Sex: 24/F Location: [facility] Status: Signed Intake Vital Signs 10/18/23 09:32 09/03/24 15:29 11/01/24 13:44 Height 5 ft 4 in 5 ft 4 in 5 ft 4 in Weight: 160 lb BMI 27.4 BP 130/73 H 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: No Is patient in pain?: No Feel stressed/tense/nervous/a nxious/difficulty sleeping: not at all Allergies No Known Allergies Allergy (Verified 11/01/24 13:45) Is last menstrual period known: Yes Last Menstrual Period: 10/15/24 (have been irregular) Post menopausal: No Patient : No : No [facility] Medical History (spontaneous vaginal delivery) Pre-eclampsia Shingles DUB (dysfunctional uterine bleeding) Subcutaneous cyst Social History adopted: No household members: significant other number of children: 1 current occupational status: employed current occupation: [employer] Smoking Status: Never smoker alcohol intake: never substance use type: does not use do you feel safe at home: Yes additional social history: Derian History 1 Elective abortions Hx Para 1 Spontaneous abortions Hx # Term Pregnancies Ectopic pregnancies Hx # Pregnancies Multiple births # of living children 1 Past Pregnancies Del. Date Name GA/Weeks Outcome Route Bth Weight Infant Gen Labor Lgth Anesthesia Del Locatn Provider FOB 09/01/22 Andrew 38 live - full term 7#5oz Male epidural [facility] Lashell Mccoy Delivery Date: 09/01/22 Last Updated by: Silvia Vela see problem list for complications. HPI Encounter for routine gynecological examination Details: SHAYLA COOPER is a 24 year old who presents for annual exam. Has been having irregular menses x 3 months. WIll have spotting x 1-2 weeks prior to menses. When full bleeding starts, passing dime sized clots. Last PAP: 02/23/2022 - normal History of abnormal PAP: Last mammogram: not due History of abnormal mammogram: Colon cancer screening: not due Other preventative health care screenings: No PCP Female Reproductive History Last Menstrual Period: 10/15/24 (have been irregular) Cycle Length: 21-35 Bleeding Duration: 14 Questions: metorrhagia: No, sexually active: Yes, dyspareunia: No and PCB: No ROS Const Constitutional: Reports system reviewed and no additional complaints, except as documented Cardio Card: Reports system reviewed and no additional complaints, except as documented Resp Resp: Reports system reviewed and no additional complaints, except as documented GI GI: Reports system reviewed and no additional complaints, except as documented : Reports system reviewed and no additional complaints, except as documented; Denies difficulty voiding, dysuria or urinary frequency Skin Skin/Breast: Reports system reviewed and no additional complaints, except as documented Neuro Neuro: Reports system reviewed and no additional complaints, except as documented Psych Psych: Reports system reviewed and no additional complaints, except as documented; Denies anhedonia, anxiety or depression Exam Const General: cooperative, healthy appearing, comfortable and no acute distress Orientation: alert, awake and oriented x3 Neck Neck: normal visual inspection and full ROM Thyroid: thyroid normal Chest Breast inspection: normal inspection of the breasts and normal inspection of the axillae Breast palpation: normal palpation of the breasts and normal palpation of the axillae Resp Effort Inspection: normal respiratory effort, able to speak in complete sentences and symmetric chest movement GI Inspection: normal to inspection Palpation: soft Rectal Exam: visual inspection normal External Female Exam: normal external appearance and normal appearance of the urethra Urethra: normal appearance of the urethra Speculum Exam - Vagina: normal appearance of the vagina and normal vaginal discharge Speculum Exam - Cervix: normal appearance of the cervix and nontender Bimanual Exam- Vagina Uterus: normal bimanual exam, normal palpation, uterine size normal, No tender and non-tender Bimanual Exam- Adnexa, other: normal Pelvic Support: normal Skin General: no rashes or lesions noted Neuro General: patient alert, patient awake and patient oriented x3 Cognition: normal cognition Speech: speech normal Gait: normal gait Extrem General: normal to inspection and full ROM Psych Appearance: g (more content not included)... Normal [facility] Service comment (Unsp spec) [Interp]Ordered By: Yin Raymundo on 11-01-2024 Pap Smear Comment (3) . . [facility] TSH DL <= 0.005 mIU/L QnOrde red By: Yin Raymundo on 11-01-2024 Thyroid Stimulating Hormone (TSH) 1.670 uIU/mL 0.300-4.200 [facility] Thyroid Stim Hormone (TSH)on 11-01-2024 TSH 1.670 uIU/mL Normal 0.300-4.200 [facility] Comment on above: Performed By: #### L [id number] #### [facility] [address] [place], [place], [id number] Genital Culture Comprehensiv colette 09-05-2024 VAC Reason for Exam: vag inal discharge No Gardnerella, Neisseria or beta-hemolytic Streptococcus isolated. Presumptive C albicans Amount Growth 2+ Normal [facility] Comment on above: Performed By: #### M 100.1999, [id number] #### [facility] [address] [place], [address] Genital cultureOrdered By: Sarah Bhatt on 09-03-2024 Genital Culture Presumptive C albicans Abnormal [facility] Gram Stainon 09-03-2024 GS Reason for Exam: vag inal discharge Gram Stain 4+ Gram positive rods 1+ Yeast Like Organisms 1+ Epithelial cells No Gram negative diplococci 2+ White Blood Cells Score = 0 Interpretation: 0-3 Normal, 4-6 Intermediate, 7-10 Positive BV Normal [facility] Comment on above: Performed By: #### M 100.1999, M100.3200 #### [facility] [address] [place], [place], [address] Gram stainOrdered By: Shayla Bhatt on 09-03-2024 Microscopic observation Gram stain Nom (Unsp spec) [facility] [employer] Office Visit Reporton 09-03-2024 Glass Science Engineer Office Visit Report [facility] [address], [address] [place] [address] OFFICE VISIT Date of Service: 09/03/24 MR#: [id number] Acct: [id number] Name: SHAYLA COOPER Rep #: [id number] : 2000 Provider: GISELA Perez Age/Sex: 24/F Location: [facility] Status: Signed Intake Vital Signs 06/13/24 13:31 09/03/24 15:29 Height 5 ft 4 in 5 ft 4 in Weight: 158 lb 2 oz BMI 27.1 BP 115/55 L Intake Visit Reasons: recurrent vaginal itching, recent treatment Metal Furrer Required: No Allergies No Known Allergies Allergy (Verified 09/03/24 15:32) Medications ???Medication ???Instructions ???Recorded ???Confirmed ???Type fluconazole 100 mg tablet 100 mg PO Q72H 3 doses #3 tabs 09/03/24 09/03/24 Rx Is last menstrual period known: Yes Last Menstrual Period: 08/16/24 Post menopausal: No Patient : No : No [facility] Medical History (spontaneous vaginal delivery) Pre-eclampsia Shingles DUB (dysfunctional uterine bleeding) Subcutaneous cyst Social History adopted: No household members: significant other number of children: 0 current occupational status: employed current occupation: [employer] Smoking Status: Never smoker alcohol intake: never substance use type: does not use do you feel safe at home: Yes additional social history: Tray Menard [facility] recurrent vaginal itching, recent treatment Details: SHAYLA COOPER is a 24 year old who presents for vaginal itching. She reports the more she itches the more it itches. She feels a little swollen. She reports white/clumpy discharge. She reports she has been using coconut oil at home. Denies fever/chills. She is sexually active. 1 partner. This is her 2 reoccurance since treatment in June with positive Albicans culture. Female Reproductive History Last Menstrual Period: 08/16/24 History 1 Elective abortions Hx Para 1 Spontaneous abortions Hx # Term Pregnancies Ectopic pregnancies Hx # Pregnancies Multiple births # of living children 1 Past Pregnancies Del. Date Name GA/Weeks Outcome Route Bth Weight Gen Labor Lgth Anesthesia Del Locatn Provider FOB 09/01/22 Andrew 38 live - full term 7#5oz Male epidural [facility] Lashell Mccoy Delivery Date: 09/01/22 Last Updated by: Silvia Vela see problem list for complications. ROS Const ROS Unobtainable: All systems reviewed are unremarkable except as noted in H Constitutional: Reports system reviewed and no additional complaints, except as documented Cardio Card: Reports system reviewed and no additional complaints, except as documented Resp Resp: Reports system reviewed and no additional complaints, except as documented GI GI: Reports system reviewed and no additional complaints, except as documented : Reports vaginal discharge and vaginal pruritus; Denies pelvic pain, vaginal dryness or vaginal odor Exam Const General: cooperative, healthy appearing, comfortable, no acute distress, well developed and well groomed Resp Effort Inspection: normal respiratory effort, able to speak in complete sentences and symmetric chest movement External Female Exam: normal external appearance, normal appearance of the urethra and other (dryness to perineum) Urethra: normal appearance of the urethra Speculum Exam - Vagina: normal appearance of the vagina, abnormal vaginal discharge (thick) white, not erythematous, no lesions, No vaginal bleeding, no masses, no swelling and nontender Speculum Exam - Cervix: normal appearance of the cervix OB/External Speculum: No vaginal bleeding Speculum Exam: no vaginal bleeding Skin Rashes: rashes noted (left arm and leg; diffuse; dry skin.) Psych Appearance: grossly normal Mental Status: mental status grossly normal Affect: normal affect Speech and Movement: speech and movement normal Thought Content: normal Coding Level of Care Code Established Pt Off vis,est,level 4 Patient Type Established Diagnoses Vaginal discharge N89.8 Assessment and Plan Assessment and Plan (1) Vaginal discharge: Status: Acute Plan: Treat today with fluconazole based on exam findings today; reoccurrence dosing. Culture obtained. Will call with results once available. Orders: Orders Culture, Genital Comprehensive Today N89.8 - Other specified noninflammatory disorders of vagina Medications: Changed From fluconazole may repeat second dose 72 hrs after first dose if symptoms persist 150 mg PO Q3D 2 tabs 0RF To fluconazole Take 1 tab every 72 hours x 3 doses. 100 mg PO Q72H 3 tabs 0RF 09/03/24 1551 Date ____ (more content not included)... Normal [facility] Genital Culture Comprehensiv colette 06-14-2024 VAC Reason for Exam: vag inal discharge Presumptive C albicans Amount Growth 3+ Normal [facility] Comment on above: Performed By: #### M 100.3200, M100.1999 #### [facility] [address] [place], [place], [id number] Gram Stainon 06-13-2024 GS Reason for Exam: vag inal discharge Gram Stain 4+ Gram positive rods 1+ Epithelial cells No Gram negative diplococci No White Blood Cells Score = 0 Interpretation: 0-3 Normal, 4-6 Intermediate, 7-10 Positive BV Normal [facility] Comment on above: Performed By: #### M 100.3200, M100.1999 #### [facility] [address] [place], [place], [id number] Glass Science Engineer Office Visit Reporton 06-13-2024 Glass Science Engineer Office Visit Report [facility] [address], [address] [place] [address] OFFICE VISIT Date of Service: 06/13/24 MR#: [id number] Acct: [id number] Name: SHAYLA COOPER Rep #: [id number] : 2000 Provider: GISELA Perez Age/Sex: 24/F Location: [facility] Status: Signed Intake Vital Signs 10/18/23 09:32 06/12/24 12:22 06/13/24 13:31 Height 5 ft 4 in 5 ft 4 in 5 ft 4 in Weight: 160 lb BMI 27.4 BP 139/74 H Intake Visit Reasons: Vaginal rash/poison margareth? Chief Complaint: rash/itching poss poison margareth Metal Furrer Required: No Is patient in pain?: No Allergies No Known Allergies Allergy (Verified 06/13/24 13:29) Medications ???Medication ???Instructions ???Recorded ???Confirmed ???Type fluconazole 150 mg tablet 150 mg PO Q3D 2 doses #2 tabs 06/13/24 06/13/24 Rx Is last menstrual period known: Yes Last Menstrual Period: 05/23/24 Post menopausal: No Patient : No : No Control Method: none Nurse's Note: pt has rash on her vagina, arm and side. has vaginal itching and thick white discharge with slight odor. pt is sexually active. pt stated her sister had poison margareth as well, but not at the same time and her's looked different. [facility] Medical History (spontaneous vaginal delivery) Pre-eclampsia Shingles DUB (dysfunctional uterine bleeding) Subcutaneous cyst Social History adopted: No household members: significant other number of children: 0 current occupational status: employed current occupation: [employer] Smoking Status: Never smoker alcohol intake: never substance use type: does not use do you feel safe at home: Yes additional social history: Tray Menard HPI Vaginal rash/poison margareth? Details: SHAYLA COOPER is a 24 year old who presents for a vaginal rash (started 3 weeks ago); she reports itching also that started a week ago. She reports she also has a thick white discharge. She reports no issues or concerns for STI's. Denies any pain to the rash/vaginal tissues. She reports she has not taken anything to help this. She states that she does have another rash on her arm as well and leg as well. She states she initially thought this was poison margareth. Has been using alcohol swabs on this. This also started 3 weeks ago. Female Reproductive History Last Menstrual Period: 05/23/24 History 1 Elective abortions Hx Para 1 Spontaneous abortions Hx # Term Pregnancies Ectopic pregnancies Hx # Pregnancies Multiple births # of living children 1 Past Pregnancies Del. Date Name GA/Weeks Outcome Route Bth Weight Gen Labor Lgth Anesthesia Del Locatn Provider FOB 09/01/22 Andrew 38 live - full term 7#5oz Male epidural [facility] Lashell daren Mccoy Delivery Date: 09/01/22 Last Updated by: Silvia Vela see problem list for complications. ROS Const Constitutional: Reports system reviewed and no additional complaints, except as documented Exam Const General: cooperative, healthy appearing, comfortable, no acute distress, well developed and well groomed Resp Effort Inspection: normal respiratory effort, able to speak in complete sentences and symmetric chest movement External Female Exam: normal external appearance, normal appearance of the urethra and other (dryness to perineum) Urethra: normal appearance of the urethra Speculum Exam - Vagina: normal appearance of the vagina, abnormal vaginal discharge (thick) white, not erythematous, no lesions, No vaginal bleeding, no masses, no swelling and nontender Speculum Exam - Cervix: normal appearance of the cervix OB/External Speculum: No vaginal bleeding Speculum Exam: no vaginal bleeding Skin Rashes: rashes noted (left arm and leg; diffuse; dry skin.) patches left upper leg Psych Appearance: grossly normal Mental Status: mental status grossly normal Affect: normal affect Speech and Movement: speech and movement normal Thought Content: normal Coding Level of Care Code Established Pt Off vis,est,level 3 Patient Type Established Diagnoses Vaginal discharge N89.8 Rash and nonspecific skin eruption R21 Assessment and Plan Assessment and Plan (1) Vaginal discharge: Status: Acute Plan: cultures obtained; will treat today based on exam findings. Final plan with culture results. (2) Rash and nonspecific skin eruption: Status: Acute Plan: multiple sites; arm; leg. Recommend dermatology evaluation and treatment if does not continue to improve. Orders: Orders Culture, Genital Comprehensive Today N89.8 - Other specified noninflammatory disorders of vagina Medications: New fluconazole may r (more content not included)... Normal [facility] Basophil percentageOrdered B y: Wale Lemus on 04-11-2023 WBC (Bld) [#/Vol] 7.9 10*3/uL 4.4-11.0 [facility] Blood erythrocytes count (nu mber/volume)Ordered By: Wale Lemus on 04-11-2023 RBC (Bld) [#/Vol] 4.36 10*6/uL 4.2-5.4 [facility] Blood hemoglobin measurement (mass/volume)Ordered By: Wale Lemus on 04-11-2023 Hemoglobin (Bld) [Mass/Vol] 12.5 g/dL 12.0-15.0 [facility] Blood platelet mean volumeOr dered By: Wale Lemus on 04-11-2023 Platelet mean volume (Bld) [Entitic vol] 10.0 fL 6.2-12.0 [facility] Determination of erythrocyte mean corpuscular volume (MCV)Ordered By: Wale Lemus on 04-11-2023 MCV (RBC) [Entitic vol] 83.9 fL 81-99 [facility] Hematocrit Auto (Bld) [Volum e fraction]Ordered By: Wale Lemus on 04-11-2023 Hematocrit (Bld) [Volume fraction] 36.6 % 37-47 [facility] - Hematology and Cell countsOrdered By: Waleeugenio Lemus on 04-11-2023 Erythrocyte distribution width (RBC) [Entitic vol] 40.2 fL 35.1-43.9 [facility] Erythrocyte distribution width (RBC) [Ratio] 13.0 % 11.6-14.6 [facility] MCH (RBC) [Entitic mass] 28.7 pg 27.0-32.0 [facility] MCHC Auto (RBC) [Mass/Vol]Or dered By: Waleeugenio Lemus on 04-11-2023 MCHC (RBC) [Mass/Vol] 34.2 g/dL 32-36 [facility] No Panel InformationOrdered By: Wale Lemus on 04-11-2023 D-Dimer Quantitative (PE/DVT) < 0.27 FEU/ug/m 0.27-0.49 [facility] Comment on above: NORMAL D-Dimer level (<0.50) indicates no DVT or PE. Platelets bldOrdered By: Wale Lemus on 04-11-2023 Platelets (Bld) [#/Vol] 271 10*3/uL 150-450 [facility] Basophil percentageon 2021 WBC (Bld) [#/Vol] 22.4 10*3/uL 4.4-11.0 [facility] Work Phone: Blood erythrocytes count (nu mber/volume)on 09-02-2022 RBC (Bld) [#/Vol] 2.88 10*6/uL 4.2-5.4 [facility] Work Phone: Blood hemoglobin measurement (mass/volume)on 09-02-2022 Hemoglobin (Bld) [Mass/Vol] 8.7 g/dL 12.0-15.0 [facility] Work Phone: Blood platelet mean volumeon 09-02-2022 Platelet mean volume (Bld) [Entitic vol] 10.8 fL 6.2-12.0 [facility] Work Phone: Determination of erythrocyte mean corpuscular volume (MCV)on 09-02-2022 MCV (RBC) [Entitic vol] 86.8 fL 81-99 [facility] Work Phone: Hematocrit Auto (Bld) [Volum e fraction]on 09-02-2022 Hematocrit (Bld) [Volume fraction] 25.0 % 37-47 [facility] Work Phone: Laboratory - Hematology and Cell countson 09-02-2022 Erythrocyte distribution width (RBC) [Entitic vol] 42.1 fL 35.1-43.9 [facility] Work Phone: Erythrocyte distribution width (RBC) [Ratio] 13.5 % 11.6-14.6 [facility] Work Phone: MCH (RBC) [Entitic mass] 30.2 pg 27.0-32.0 [facility] Work Phone: MCHC Auto (RBC) [Mass/Vol]on 09-02-2022 MCHC (RBC) [Mass/Vol] 34.8 g/dL 32-36 [facility] Work Phone: Comment on above: Delta: 32.7 on 08/31-1655 Platelets bldon 09-02-2022 Platelets (Bld) [#/Vol] 204 10*3/uL 150-450 [facility] Work Phone: Laboratory - Chemistry and C hemistry - challengeon 08-31-2022 ALT [Catalytic activity/Vol] 17 U/L 13-56 [facility] Work Phone: No Panel Informationon 08-31 Estimated Creatinine Clearance Calc 99.88 ml/min [facility] Work Phone: Estimated GFR (MDRD) Amer 121 mL/min >60 [facility] Work Phone: Comment on above: GFR Calc Estimated GFR (MDRD) Non-Af Amer 100 mL/min >60 [facility] Work Phone: Comment on above: Non- GFR Calc Serum or plasma creatinine m easurement (mass/volume)on 08-31-2022 Creatinine [Mass/Vol] 0.75 mg/dL 0.55-1.02 [facility] Work Phone: Comment on above: The validity of the calculated GFR & GFRAA in patients over 70 years has not been determined. Clinical correlation is essential. Serum or plasma uric acid me asurement (mass/volume)on 08-31-2022 Urate [Mass/Vol] 5.9 mg/dL 2.6-6.0 [facility] Work Phone: Comment on above: The drugs N-Acetylcy steine and Metamizole may falsely depress this assay. Thin prep Papanicolaou smear with manual screeningon 08-31-2022 Thin prep Papanicolaou smear with manual screening 18 U/L 15-37 [facility] Work Phone: Urine creatinine measurement (mass/volume)on 08-31-2022 Creatinine (U) [Mass/Vol] 99.20 mg/dL NO RANGE EST. [facility] Work Phone: Urine protein measurement (m ass/volume)on 08-31-2022 Protein (U) [Mass/Vol] 868.4 mg/dL 0.0-11.8 [facility] Work Phone: Urine protein/creatinine mas s ratioon 08-31-2022 Protein/Creatinine (U) [Mass ratio] 8754 mg/g CRE 0-200 [facility] Work Phone: Basophil percentageon 2021 WBC (Bld) [#/Vol] 8.6 10*3/uL 4.4-11.0 [facility] Work Phone: Blood erythrocytes count (nu mber/volume)on 08-25-2022 RBC (Bld) [#/Vol] 3.70 10*6/uL 4.2-5.4 [facility] Work Phone: Blood hemoglobin measurement (mass/volume)on 08-25-2022 Hemoglobin (Bld) [Mass/Vol] 11.0 g/dL 12.0-15.0 [facility] Work Phone: Blood platelet mean volumeon 08-25-2022 Platelet mean volume (Bld) [Entitic vol] 11.0 fL 6.2-12.0 [facility] Work Phone: Determination of erythrocyte mean corpuscular volume (MCV)on 08-25-2022 MCV (RBC) [Entitic vol] 86.5 fL 81-99 [facility] Work Phone: Hematocrit Auto (Bld) [Volum e fraction]on 08-25-2022 Hematocrit (Bld) [Volume fraction] 32.0 % 37-47 [facility] Work Phone: Laboratory - Chemistry and C hemistry - challengeon 08-25-2022 ALT [Catalytic activity/Vol] 21 U/L 13-56 [facility] Work Phone: Glucose Ql (U) Negative [facility] Work Phone: Laboratory - Hematology and Cell countson 08-25-2022 Erythrocyte distribution width (RBC) [Entitic vol] 41.3 fL 35.1-43.9 [facility] Work Phone: Erythrocyte distribution width (RBC) [Ratio] 13.2 % 11.6-14.6 [facility] Work Phone: MCH (RBC) [Entitic mass] 29.7 pg 27.0-32.0 [facility] Work Phone: Laboratory - Urinalysison Protein Ql (U) Positive [facility] Work Phone: MCHC Auto (RBC) [Mass/Vol]on 08-25-2022 MCHC (RBC) [Mass/Vol] 34.4 g/dL 32-36 [facility] Work Phone: No Panel Informationon 08-25 Estimated Creatinine Clearance Calc 104.04 ml/min [facility] Work Phone: Estimated GFR (MDRD) Amer 128 mL/min >60 [facility] Work Phone: Comment on above: GFR Calc Estimated GFR (MDRD) Non-Af Amer 106 mL/min >60 [facility] Work Phone: Comment on above: Non- GFR Calc Platelets bldon 08-25-2022 Platelets (Bld) [#/Vol] 232 10*3/uL 150-450 [facility] Work Phone: Serum or plasma creatinine m easurement (mass/volume)on 08-25-2022 Creatinine [Mass/Vol] 0.72 mg/dL 0.55-1.02 [facility] Work Phone: Comment on above: The validity of the calculated GFR & GFRAA in patients over 70 years has not been determined. Clinical correlation is essential. Serum or plasma uric acid me asurement (mass/volume)on 08-25-2022 Urate [Mass/Vol] 5.7 mg/dL 2.6-6.0 [facility] Work Phone: Comment on above: The drugs N-Acetylcy steine and Metamizole may falsely depress this assay. Thin prep Papanicolaou smear with manual screeningon 08-25-2022 Thin prep Papanicolaou smear with manual screening 14 U/L 15-37 [facility] Work Phone: Urine creatinine measurement (mass/volume)on 08-25-2022 Creatinine (U) [Mass/Vol] 131.00 mg/dL NO RANGE EST. [facility] Work Phone: Urine protein measurement (m ass/volume)on 08-25-2022 Protein (U) [Mass/Vol] 36.6 mg/dL 0.0-11.8 [facility] Work Phone: Urine protein/creatinine mas s ratioon 08-25-2022 Protein/Creatinine (U) [Mass ratio] 279 mg/g CRE 0-200 [facility] Work Phone: Laboratory - Chemistry and C hemistry - challengeon 08-20-2022 Glucose Ql (U) Negative [facility] Work Phone: Laboratory - Urinalysison Protein Ql (U) Negative [facility] Work Phone: Laboratory - Chemistry and C hemistry - challengeon 08-13-2022 Glucose Ql (U) Negative [facility] Work Phone: Laboratory - Urinalysison Protein Ql (U) Negative [facility] Work Phone: Basophil percentageon 2021 WBC (Bld) [#/Vol] 9.4 10*3/uL 4.4-11.0 [facility] Work Phone: Blood erythrocytes count (nu mber/volume)on 08-05-2022 RBC (Bld) [#/Vol] 3.72 10*6/uL 4.2-5.4 [facility] Work Phone: Blood hemoglobin measurement (mass/volume)on 08-05-2022 Hemoglobin (Bld) [Mass/Vol] 10.9 g/dL 12.0-15.0 [facility] Work Phone: Blood platelet mean volumeon 08-05-2022 Platelet mean volume (Bld) [Entitic vol] 10.5 fL 6.2-12.0 [facility] Work Phone: Determination of erythrocyte mean corpuscular volume (MCV)on 08-05-2022 MCV (RBC) [Entitic vol] 87.4 fL 81-99 [facility] Work Phone: Hematocrit Auto (Bld) [Volum e fraction]on 08-05-2022 Hematocrit (Bld) [Volume fraction] 32.5 % 37-47 [facility] Work Phone: Laboratory - Chemistry and C hemistry - challengeon 08-05-2022 ALT [Catalytic activity/Vol] 22 U/L 13-56 [facility] Work Phone: Laboratory - Hematology and Cell countson 08-05-2022 Erythrocyte distribution width (RBC) [Entitic vol] 39.6 fL 35.1-43.9 [facility] Work Phone: Erythrocyte distribution width (RBC) [Ratio] 12.5 % 11.6-14.6 [facility] Work Phone: MCH (RBC) [Entitic mass] 29.3 pg 27.0-32.0 [facility] Work Phone: MCHC Auto (RBC) [Mass/Vol]on 08-05-2022 MCHC (RBC) [Mass/Vol] 33.5 g/dL 32-36 [facility] Work Phone: No Panel Informationon 08-05 Estimated Creatinine Clearance Calc 135.39 ml/min [facility] Work Phone: Estimated GFR (MDRD) Amer 182 mL/min >60 [facility] Work Phone: Comment on above: GFR Calc Estimated GFR (MDRD) Non-Af Amer 150 mL/min >60 [facility] Work Phone: Comment on above: Non- GFR Calc Platelets bldon 08-05-2022 Platelets (Bld) [#/Vol] 263 10*3/uL 150-450 [facility] Work Phone: Serum or plasma creatinine m easurement (mass/volume)on 08-05-2022 Creatinine [Mass/Vol] 0.53 mg/dL 0.55-1.02 [facility] Work Phone: Comment on above: The validity of the calculated GFR & GFRAA in patients over 70 years has not been determined. Clinical correlation is essential. Serum or plasma uric acid me asurement (mass/volume)on 08-05-2022 Urate [Mass/Vol] 3.8 mg/dL 2.6-6.0 [facility] Work Phone: Comment on above: The drugs N-Acetylcy steine and Metamizole may falsely depress this assay. Thin prep Papanicolaou smear with manual screeningon 08-05-2022 Thin prep Papanicolaou smear with manual screening 14 U/L 15-37 [facility] Work Phone: Urine creatinine measurement (mass/volume)on 08-05-2022 Creatinine (U) [Mass/Vol] 24.00 mg/dL NO RANGE EST. [facility] Work Phone: Urine protein measurement (m ass/volume)on 08-05-2022 Protein (U) [Mass/Vol] 7.1 mg/dL 0.0-11.8 [facility] Work Phone: Urine protein/creatinine mas s ratioon 08-05-2022 Protein/Creatinine (U) [Mass ratio] 296 mg/g CRE 0-200 [facility] Work Phone: Laboratory - Chemistry and C hemistry - challengeon 07-26-2022 Glucose Ql (U) Negative [facility] Work Phone: Laboratory - Urinalysison Protein Ql (U) Negative [facility] Work Phone: Basophil percentageon 2021 WBC (Bld) [#/Vol] 10.7 10*3/uL 4.4-11.0 [facility] Work Phone: Blood erythrocytes count (nu mber/volume)on 07-14-2022 RBC (Bld) [#/Vol] 4.11 10*6/uL 4.2-5.4 [facility] Work Phone: Blood hemoglobin measurement (mass/volume)on 07-14-2022 Hemoglobin (Bld) [Mass/Vol] 12.3 g/dL 12.0-15.0 [facility] Work Phone: Blood platelet mean volumeon 07-14-2022 Platelet mean volume (Bld) [Entitic vol] 10.2 fL 6.2-12.0 [facility] Work Phone: Determination of erythrocyte mean corpuscular volume (MCV)on 07-14-2022 MCV (RBC) [Entitic vol] 88.6 fL 81-99 [facility] Work Phone: Hematocrit Auto (Bld) [Volum e fraction]on 07-14-2022 Hematocrit (Bld) [Volume fraction] 36.4 % 37-47 [facility] Work Phone: Laboratory - Chemistry and C hemistry - challengeon 07-14-2022 ALT [Catalytic activity/Vol] 21 U/L 13-56 [facility] Work Phone: Glucose Ql (U) Negative [facility] Work Phone: Laboratory - Hematology and Cell countson 07-14-2022 Erythrocyte distribution width (RBC) [Entitic vol] 40.5 fL 35.1-43.9 [facility] Work Phone: Erythrocyte distribution width (RBC) [Ratio] 12.5 % 11.6-14.6 [facility] Work Phone: MCH (RBC) [Entitic mass] 29.9 pg 27.0-32.0 [facility] Work Phone: Laboratory - Urinalysison Protein Ql (U) Negative [facility] Work Phone: MCHC Auto (RBC) [Mass/Vol]on 07-14-2022 MCHC (RBC) [Mass/Vol] 33.8 g/dL 32-36 [facility] Work Phone: No Panel Informationon 07-14 Estimated Creatinine Clearance Calc 128.14 ml/min [facility] Work Phone: Estimated GFR (MDRD) Amer 171 mL/min >60 [facility] Work Phone: Comment on above: GFR Calc Estimated GFR (MDRD) Non-Af Amer 142 mL/min >60 [facility] Work Phone: Comment on above: Non- GFR Calc Platelets bldon 07-14-2022 Platelets (Bld) [#/Vol] 268 10*3/uL 150-450 [facility] Work Phone: Serum or plasma creatinine m easurement (mass/volume)on 07-14-2022 Creatinine [Mass/Vol] 0.56 mg/dL 0.55-1.02 [facility] Work Phone: Comment on above: The validity of the calculated GFR & GFRAA in patients over 70 years has not been determined. Clinical correlation is essential. Serum or plasma uric acid me asurement (mass/volume)on 07-14-2022 Urate [Mass/Vol] 3.3 mg/dL 2.6-6.0 [facility] Work Phone: Comment on above: The drugs N-Acetylcy steine and Metamizole may falsely depress this assay. Thin prep Papanicolaou smear with manual screeningon 07-14-2022 Thin prep Papanicolaou smear with manual screening 15 U/L 15-37 [facility] Work Phone: Urine creatinine measurement (mass/volume)on 07-14-2022 Creatinine (U) [Mass/Vol] 45.80 mg/dL NO RANGE EST. [facility] Work Phone: Urine protein measurement (m ass/volume)on 07-14-2022 Protein (U) [Mass/Vol] 9.4 mg/dL 0.0-11.8 [facility] Work Phone: Urine protein/creatinine mas s ratioon 07-14-2022 Protein/Creatinine (U) [Mass ratio] 205 mg/g CRE 0-200 [facility] Work Phone: Absolute lymphocyte counton 06-18-2022 Lymphocytes Auto (Unsp spec) [#/Vol] 1.30 10*3/uL 0.83-4.51 [facility] Work Phone: Basophil percentageon 2021 Basophils/100 WBC (Bld) 0.1 % 0-1 [facility] Work Phone: Eosinophils/100 WBC (Bld) 0.3 % 0-5 [facility] Work Phone: Neutrophils (Bld) [#/Vol] 7.9 10*3/uL 2.0-7.7 [facility] Work Phone: Neutrophils/100 WBC (Bld) 78.5 % 47-70 [facility] Work Phone: WBC (Bld) [#/Vol] 10.0 10*3/uL 4.4-11.0 [facility] Work Phone: Blood erythrocytes count (nu mber/volume)on 06-18-2022 RBC (Bld) [#/Vol] 3.91 10*6/uL 4.2-5.4 [facility] Work Phone: Blood hemoglobin measurement (mass/volume)on 06-18-2022 Hemoglobin (Bld) [Mass/Vol] 11.6 g/dL 12.0-15.0 [facility] Work Phone: Blood lymphocytes/100 leukoc yteson 06-18-2022 Lymphocytes/100 WBC (Bld) 13.0 % 19-41 [facility] Work Phone: Blood monocytes/100 leukocyt eson 06-18-2022 Monocytes/100 WBC (Bld) 7.5 % 0-10 [facility] Work Phone: Blood platelet mean volumeon 06-18-2022 Platelet mean volume (Bld) [Entitic vol] 9.8 fL 6.2-12.0 [facility] Work Phone: Determination of erythrocyte mean corpuscular volume (MCV)on 06-18-2022 MCV (RBC) [Entitic vol] 90.3 fL 81-99 [facility] Work Phone: Gestational diabetes screen 1-hour screen with 50g oral glucose loadon 06-18-2022 Glucose 1 Hr post 50 g glucose PO [Mass/Vol] 86 mg/dL 70-140 [facility] Work Phone: Hematocrit Auto (Bld) [Volum e fraction]on 06-18-2022 Hematocrit (Bld) [Volume fraction] 35.3 % 37-47 [facility] Work Phone: Laboratory - Chemistry and C hemistry - challengeon 06-18-2022 Glucose Ql (U) Negative [facility] Work Phone: Laboratory - Hematology and Cell countson 06-18-2022 Erythrocyte distribution width (RBC) [Entitic vol] 41.1 fL 35.1-43.9 [facility] Work Phone: Erythrocyte distribution width (RBC) [Ratio] 12.5 % 11.6-14.6 [facility] Work Phone: Immature granulocytes/100 WBC (Bld) 0.600 % 0.0-0.9 [facility] Work Phone: Comment on above: IG% - Immature Granu locytes (promyelocytes, myelocytes and metamyelocytes) > 1% indicates that a LEFT SHIFT is Present. MCH (RBC) [Entitic mass] 29.7 pg 27.0-32.0 [facility] Work Phone: Nucleated RBC/100 WBC (Bld) [Ratio] 0 % 0-5 [facility] Work Phone: Laboratory - Urinalysison Protein Ql (U) Negative [facility] Work Phone: MCHC Auto (RBC) [Mass/Vol]on 06-18-2022 MCHC (RBC) [Mass/Vol] 32.9 g/dL 32-36 [facility] Work Phone: Platelets bldon 06-18-2022 Platelets (Bld) [#/Vol] 249 10*3/uL 150-450 [facility] Work Phone: Laboratory - Chemistry and C hemistry - challengeon 05-21-2022 Glucose Ql (U) Negative [facility] Work Phone: [phone] Laboratory - Urinalysison Protein Ql (U) Negative [facility] Work Phone: Absolute lymphocyte counton 03-26-2022 Lymphocytes Auto (Unsp spec) [#/Vol] 1.75 10*3/uL 0.83-4.51 [facility] Work Phone: Basophil percentageon 2021 Basophils/100 WBC (Bld) 0.1 % 0-1 [facility] Work Phone: Eosinophils/100 WBC (Bld) 0.1 % 0-5 [facility] Work Phone: Neutrophils (Bld) [#/Vol] 4.6 10*3/uL 2.0-7.7 [facility] Work Phone: [phone] Neutrophils/100 WBC (Bld) 66.7 % 47-70 [facility] Work Phone: WBC (Bld) [#/Vol] 7.0 10*3/uL 4.4-11.0 [facility] Work Phone: Blood erythrocytes count (nu mber/volume)on 03-26-2022 RBC (Bld) [#/Vol] 4.34 10*6/uL [facility] Blood hemoglobin measurement (mass/volume)on 03-26-2022 Hemoglobin (Bld) [Mass/Vol] 13.1 g/dL 12.0-15.0 [facility] Work Phone: Blood lymphocytes/100 leukoc yteson 03-26-2022 Lymphocytes/100 WBC (Bld) 25.1 % 19-41 [facility] Work Phone: Blood monocytes/100 leukocyt eson 03-26-2022 Monocytes/100 WBC (Bld) 7.9 % 0-10 [facility] Work Phone: Blood platelet mean volumeon 03-26-2022 Platelet mean volume (Bld) [Entitic vol] 10.2 fL 6.2-12.0 [facility] Work Phone: Determination of erythrocyte mean corpuscular volume (MCV)on 03-26-2022 MCV (RBC) [Entitic vol] 87.1 fL 81-99 [facility] Work Phone: HIV 1 and HIV-2 antibody ass ay with HIV-1 p24 antigen detectionon 03-26-2022 HIV 1+2 Ab+HIV1 p24 Ag IA Ql Non-Reactive Nonreactive [facility] Work Phone: Hematocrit Auto (Bld) [Volum e fraction]on 03-26-2022 Hematocrit (Bld) [Volume fraction] 37.8 % 37-47 [facility] Work Phone: Laboratory - Chemistry and C hemistry - challengeon 03-26-2022 Glucose Ql (U) Negative [facility] Work Phone: Laboratory - Hematology and Cell countson 03-26-2022 Erythrocyte distribution width (RBC) [Entitic vol] 38.3 fL 35.1-43.9 [facility] Work Phone: Erythrocyte distribution width (RBC) [Ratio] 11.9 % 11.6-14.6 [facility] Work Phone: Immature granulocytes/100 WBC (Bld) 0.100 % 0.0-0.9 [facility] Work Phone: Comment on above: IG% - Immature Granu locytes (promyelocytes, myelocytes and metamyelocytes) > 1% indicates that a LEFT SHIFT is Present. MCH (RBC) [Entitic mass] 30.2 pg 27.0-32.0 [facility] Work Phone: Nucleated RBC/100 WBC (Bld) [Ratio] 0 % 0-5 [facility] Work Phone: Laboratory - Urinalysison Protein Ql (U) Negative [facility] Work Phone: MCHC Auto (RBC) [Mass/Vol]on 03-26-2022 MCHC (RBC) [Mass/Vol] 34.7 g/dL 32-36 [facility] Work Phone: No Panel Informationon 03-26 Hepatitis B Surface Antigen Non-Reactive Nonreactive [facility] Work Phone: Hepatitis C Antibody Non-Reactive Nonreactive [facility] Work Phone: Comment on above: Non Reactive: < 0.8 Equivocal: >/= 0.8 to < 1.0 Reactive: >/= 1.0The [facility] recommends that a reactive/equivocal HCV antibody result be followed up by the HCV Nucleic Acid Amplificationtest (373220) Rubella IgG Antibody Reactive Nonreactive [facility] Work Phone: Comment on above: Antibody Results Int erpretation of Immune Status Non Reactive Presumed Non-Immune Equivocal Equivocal Reactive Presumed Immune Platelets bldon 03-26-2022 Platelets (Bld) [#/Vol] 245 10*3/uL 150-450 [facility] Work Phone: Serum Treponema species anti body detectionon 03-26-2022 Treponema sp Ab Ql (S) Non-Reactive [facility] Work Phone: Cervical or vagninal specime n microscopic examination by cytology stain (reported ason 02-23-2022 Cytology report Cyto stain Doc (Cvx/Vag) Comment . [facility] Work Phone: Comment on above: The Pap smear is a s creening test designed to aid in thedetection of premalignant and malignant conditions of theuterine cervix. It is not a diagnostic procedure andshould not be used as the sole means of detecting cervicalcancer. Both false-positive and false-negative reports dooccur. Chlamydia trachomatis rRNA d etection by probe and target amplification methodon 02-23-2022 C. trachomatis rRNA SRIKANTH+probe Ql (Unsp spec) Negative Negative [facility] Work Phone: Laboratory - Cytologyon 02-04 Cytogenetics Technologist Cyto stain Nom (Cvx/Vag) [ID] Comment . [facility] Work Phone: Comment on above: Edmond Carvalho totechnologist (ASC) Laboratory - Drug toxicology on 02-23-2022 Amphetamines Ql (U) Negative <1000 ng/mL [facility] Work Phone: Benzodiazepines Ql (U) Negative < 200 ng/mL [facility] Work Phone: Cannabinoids Screen Ql (U) Negative < 50 ng/mL [facility] Work Phone: Cocaine Ql (U) Negative < 300 ng/mL [facility] Work Phone: Opiates Ql (U) Negative < 300 ng/mL [facility] Work Phone: Laboratory - Microbiology an d Antimicrobial susceptibilityon 02-23-2022 N. gonorrhoeae DNA SRIKANTH+probe Ql (Unsp spec) Negative Negative [facility] Work Phone: Comment on above: Performed at: =G - [facility] [address] [id number] Director: Lizz Rudd MD, Phone: [phone] Laboratory - Miscellaneous t estson 02-23-2022 Service comment (Unsp spec) [Interp] Comment . [facility] Work Phone: Comment on above: This liquid based Th inPrep(R) pap test was screened withthe use of an image guided system. Service comment (Unsp spec) [Interp] . . [facility] Work Phone: No Panel Informationon 02-23 Human Papillomavirus Screen Comment . [facility] Work Phone: Comment on above: The HPV DNA reflex c derek were not met with this specimenresult therefore, no HPV testing was performed.Performed at: WB - [facility] [address] [id number] Director: Lizz Rudd MD, Phone: [phone] MDMA (Ecstasy) Screen Negative < 500 ng/mL [facility] Work Phone: Pathology report final diagnosis Narrative Comment . [facility] Work Phone: Comment on above: NEGATIVE FOR INTRAEP ITHELIAL LESION OR MALIGNANCY. Urine Barbiturates Screen Negative < 200 ng/mL [facility] Work Phone: Urine Drug Screen Comment [facility] Work Phone: Comment on above: CONFIRMATORY TESTING FOR ALL POSITIVE URINE DRUG SCREENRESULTS WILL ONLY BE SENT OUT UPON PHYSICIAN ORDER. VISTA Urine Drug Screen methods provide only preliminaryanalytical test results. A more specific alternate chemicalmethod must be used in order to obtain a confirmedanalytical result. Gas chromatography/mass spectrometery(GC/MS) is the preferred confirmatory method. Clinicalconsideration and professional judgement should be appliedto any drug of abuse test result, particularly whenpreliminary positive results are used. URINE TCA TESTING MUST BE ORDERED SEPARATELY. USE TESTMNEMONIC: [facility] Urine Methadone Screen Negative < 300 ng/mL [facility] Work Phone: Urine phencyclidine (PCP) de tectionon 02-23-2022 Phencyclidine Ql (U) Negative < 25 ng/mL [facility] Work Phone: Culture, urine Bacteria identified Cx Nom (U) Enterococcus faecalis [facility] Work Phone: Bacteria identified Cx Nom (U) Streptococcus agalactiae (B) [facility] Work Phone: Bacteria identified Cx Nom (U) Alcaligenes faecalis ssp faeca [facility] Work Phone: Vital Signs Date Time Vital Sign Value Performing Clinician Faci lity 11-01-2024 13:44-0500 Body height 162.56 cm [facility] 11-01-2024 13:44-0500 Body mass index (BMI) [Ratio] 27.4 kg/m2 [facility] 11-01-2024 13:44-0500 Body weight 72.57 kg [facility] 11-01-2024 13:44-0500 Diastolic blood pressure 73 mm[Hg] [facility] 11-01-2024 13:44-0500 Systolic blood pressure 130 mm[Hg] [facility] 09-03-2024 15:29-0500 Body mass index (BMI) [Ratio] 27.1 kg/m2 [facility] 09-03-2024 15:29-0500 Body weight 71.72 kg [facility] 09-03-2024 15:29-0500 Diastolic blood pressure 55 mm[Hg] [facility] 09-03-2024 15:29-0500 Systolic blood pressure 115 mm[Hg] Charmaine Reyes [facility] 04-11-2023 15:55-0400 Heart rate 53 /min [facility] 04-11-2023 15:55-0400 Respiratory rate 14 /min [facility] 04-11-2023 15:55-0400 SaO2% (BldA) [Mass fraction] 99 % [facility] 04-11-2023 13:56-0400 Body height 162.56 cm [facility] 04-11-2023 13:56-0400 Body mass index (BMI) [Ratio] 30.4 kg/m2 [facility] 04-11-2023 13:56-0400 Body temperature 97.3 [degF] [facility] 04-11-2023 13:56-0400 Body weight 80.28 kg [facility] 04-11-2023 13:56-0400 Diastolic blood pressure 75 mm[Hg] [facility] 04-11-2023 13:56-0400 Systolic blood pressure 139 mm[Hg] [facility] 01-07-2023 16:50-0400 Body mass index (BMI) [Ratio] 31.6 kg/m2 [facility] 01-07-2023 16:50-0400 Body temperature 97.2 [degF] [facility] 01-07-2023 16:50-0400 Body weight 83.46 kg [facility] 01-07-2023 16:50-0400 Diastolic blood pressure 60 mm[Hg] [facility] 01-07-2023 16:50-0400 Heart rate 60 /min [facility] 01-07-2023 16:50-0400 Respiratory rate 18 /min [facility] 01-07-2023 16:50-0400 SaO2% (BldA) [Mass fraction] 99 % [facility] 01-07-2023 16:50-0400 Systolic blood pressure 120 mm[Hg] [facility] 09-03-2022 08:42-0500 Body temperature 98.1 [degF] Charmaine Eric [facility] Work Phone: 09-03-2022 08:42-0500 Diastolic blood pressure 65 mm[Hg] [facility] Work Phone: 09-03-2022 08:42-0500 Heart rate 79 /min [facility] Work Phone: 09-03-2022 08:42-0500 Respiratory rate 16 /min [facility] Work Phone: 09-03-2022 08:42-0500 Systolic blood pressure 115 mm[Hg] [facility] Work Phone: 09-03-2022 01:39-0500 SaO2% (BldA) [Mass fraction] 99 % [facility] Work Phone: 08-31-2022 16:26-0500 Body height 162.56 cm [facility] Work Phone: 08-31-2022 16:26-0500 Body mass index (BMI) [Ratio] 40.7 kg/m2 [facility] Work Phone: 08-31-2022 16:26-0500 Body weight 107.6 kg [facility] Work Phone: 08-26-2022 14:18-0500 Body mass index (BMI) [Ratio] 40 kg/m2 [facility] Work Phone: 08-26-2022 14:18-0500 Body weight 105.77 kg [facility] Work Phone: 08-26-2022 14:18-0500 Diastolic blood pressure 69 mm[Hg] [facility] Work Phone: 08-26-2022 14:18-0500 Systolic blood pressure 111 mm[Hg] [facility] Work Phone: 08-25-2022 11:10-0500 Diastolic blood pressure 74 mm[Hg] [facility] Work Phone: 08-25-2022 11:10-0500 Heart rate 66 /min [facility] Work Phone: 08-25-2022 11:10-0500 Systolic blood pressure 123 mm[Hg] [facility] Work Phone: 08-25-2022 09:11-0500 Body temperature 98.3 [degF] [facility] Work Phone: 08-25-2022 09:03-0500 Body mass index (BMI) [Ratio] 39 kg/m2 [facility] Work Phone: 08-25-2022 09:03-0500 Body weight 103.19 kg [facility] Work Phone: 08-25-2022 08:30-0500 Body mass index (BMI) [Ratio] 40.9 kg/m2 [facility] Work Phone: 08-25-2022 08:30-0500 Body weight 104.89 kg [facility] Work Phone: 08-25-2022 08:30-0500 Diastolic blood pressure 84 mm[Hg] [facility] Work Phone: 08-25-2022 08:30-0500 Systolic blood pressure 155 mm[Hg] [facility] Work Phone: 08-20-2022 14:08-0500 Body mass index (BMI) [Ratio] 40 kg/m2 [facility] Work Phone: 08-20-2022 14:08-0500 Body weight 102.51 kg [facility] Work Phone: 08-20-2022 14:08-0500 Diastolic blood pressure 80 mm[Hg] [facility] Work Phone: 08-20-2022 14:08-0500 Systolic blood pressure 136 mm[Hg] [facility] Work Phone: 08-13-2022 16:06-0500 Body mass index (BMI) [Ratio] 39 kg/m2 [facility] Work Phone: 08-13-2022 16:06-0500 Body weight 99.96 kg [facility] Work Phone: 08-13-2022 16:06-0500 Diastolic blood pressure 71 mm[Hg] [facility] Work Phone: 08-13-2022 16:06-0500 Systolic blood pressure 118 mm[Hg] [facility] Work Phone: 08-05-2022 17:18-0500 Heart rate 68 /min [facility] Work Phone: 08-05-2022 17:18-0500 SaO2% (BldA) [Mass fraction] 99 % [facility] Work Phone: 08-05-2022 17:11-0500 Diastolic blood pressure 62 mm[Hg] [facility] Work Phone: 08-05-2022 17:11-0500 Systolic blood pressure 131 mm[Hg] [facility] Work Phone: 08-05-2022 16:24-0500 Body temperature 97.7 [degF] [facility] Work Phone: 08-05-2022 16:20-0500 Body mass index (BMI) [Ratio] 38.8 kg/m2 [facility] Work Phone: 08-05-2022 16:20-0500 Body weight 99.5 kg [facility] Work Phone: 07-26-2022 13:04-0500 Body weight 97.97 kg [facility] Work Phone: 07-26-2022 13:04-0500 Diastolic blood pressure 87 mm[Hg] [facility] Work Phone: 07-26-2022 13:04-0500 Systolic blood pressure 128 mm[Hg] [facility] Work Phone: 07-14-2022 16:45-0500 Diastolic blood pressure 67 mm[Hg] [facility] Work Phone: 07-14-2022 16:45-0500 Heart rate 96 /min [facility] Work Phone: 07-14-2022 16:45-0500 Systolic blood pressure 119 mm[Hg] [facility] Work Phone: 07-14-2022 15:22-0500 Body mass index (BMI) [Ratio] 36.4 kg/m2 [facility] Work Phone: 07-14-2022 15:22-0500 Body weight 93.3 kg [facility] Work Phone: 07-14-2022 14:59-0500 Body temperature 97.7 [degF] [facility] Work Phone: 07-14-2022 14:05-0500 Body mass index (BMI) [Ratio] 38 kg/m2 [facility] Work Phone: 07-14-2022 14:05-0500 Body weight 94.34 kg [facility] Work Phone: 07-14-2022 14:05-0500 Diastolic blood pressure 90 mm[Hg] [facility] Work Phone: 07-14-2022 14:05-0500 Systolic blood pressure 140 mm[Hg] [facility] Work Phone: 07-02-2022 13:41-0400 Body mass index (BMI) [Ratio] 36.7 kg/m2 [facility] Work Phone: 07-02-2022 13:41-0400 Body weight 91.17 kg [facility] Work Phone: 07-02-2022 13:41-0400 Diastolic blood pressure 70 mm[Hg] [facility] Work Phone: 07-02-2022 13:41-0400 Systolic blood pressure 102 mm[Hg] [facility] Work Phone: 06-18-2022 10:53-0400 Body height 157.48 cm [facility] Work Phone: 06-18-2022 10:53-0400 Body mass index (BMI) [Ratio] 36.2 kg/m2 [facility] Work Phone: 06-18-2022 10:53-0400 Body weight 89.81 kg [facility] Work Phone: 06-18-2022 10:53-0400 Diastolic blood pressure 66 mm[Hg] [facility] Work Phone: 06-18-2022 10:53-0400 Systolic blood pressure 127 mm[Hg] [facility] Work Phone: 05-21-2022 15:03-0400 Body mass index (BMI) [Ratio] 34.1 kg/m2 [facility] Work Phone: 05-21-2022 15:03-0400 Body weight 84.59 kg [facility] Work Phone: 05-21-2022 15:03-0400 Diastolic blood pressure 71 mm[Hg] [facility] Work Phone: 05-21-2022 15:03-0400 Systolic blood pressure 129 mm[Hg] [facility] Work Phone: 04-23-2022 10:21-0400 Diastolic blood pressure 61 mm[Hg] [facility] Work Phone: 04-23-2022 10:21-0400 Systolic blood pressure 107 mm[Hg] [facility] Work Phone: 04-23-2022 09:49-0400 Body mass index (BMI) [Ratio] 32.6 kg/m2 [facility] Work Phone: 04-23-2022 09:49-0400 Body weight 80.9 kg [facility] Work Phone: 03-26-2022 09:23-0400 Body mass index (BMI) [Ratio] 30.7 kg/m2 [facility] Work Phone: 03-26-2022 09:23-0400 Body weight 76.2 kg [facility] Work Phone: 03-26-2022 09:23-0400 Diastolic blood pressure 71 mm[Hg] [facility] Work Phone: 03-26-2022 09:23-0400 Systolic blood pressure 120 mm[Hg] [facility] Work Phone: 02-23-2022 14:37-0400 Body height 157.48 cm [facility] Work Phone: 02-23-2022 14:36-0400 Body mass index (BMI) [Ratio] 30.9 kg/m2 [facility] Work Phone: 02-23-2022 14:36-0400 Body weight 76.77 kg [facility] Work Phone: 02-23-2022 14:36-0400 Diastolic blood pressure 78 mm[Hg] [facility] Work Phone: 02-23-2022 14:36-0400 Systolic blood pressure 144 mm[Hg] [facility] Work Phone: 12-30-2021 18:35-0400 Body mass index (BMI) [Ratio] 31.1 kg/m2 [facility] Work Phone: 12-30-2021 18:35-0400 Body temperature 97.7 [degF] [facility] Work Phone: 12-30-2021 18:35-0400 Body weight 77.11 kg [facility] Work Phone: 12-30-2021 18:35-0400 Diastolic blood pressure 60 mm[Hg] [facility] Work Phone: 12-30-2021 18:35-0400 Heart rate 84 /min [facility] Work Phone: 12-30-2021 18:35-0400 Respiratory rate 18 /min [facility] Work Phone: 12-30-2021 18:35-0400 SaO2% (BldA) [Mass fraction] 99 % [facility] Work Phone: 12-30-2021 18:35-0400 Systolic blood pressure 128 mm[Hg] [facility] Work Phone: Encounters Encounter Date Encounter Type Care Provider Facility Start: 11-08-2024 End: 11-08-2024 ambulatory [facility] Work Phone: Start: 11-08-2024 End: 11-08-2024 Patient encounter procedure Yin Raymundo CN -Ultrasound, [facility] Work Phone: Start: 11-08-2024 End: 11-08-2024 ambulatory Yin Raymundo Facility:[facility] Start: 11-01-2024 Encounter for gynecological examination (general) (routine) without abnormal findings Yin Raymundo [facility] Start: 11-01-2024 End: 11-01-2024 Patient encounter procedure Yin Raymundo [facility] Work Phone: Start: 11-01-2024 End: 11-01-2024 Patient encounter status Yin Raymundo [facility] Start: 11-01-2024 End: 11-01-2024 ambulatory Yin Raymundo Facility:[facility] Start: 11-01-2024 End: 11-01-2024 ambulatory Yin Raymundo Facility:[facility] Start: 09-03-2024 End: 09-03-2024 Patient encounter procedure Shayla HIGGINS -[facility] Work Phone: Start: 09-03-2024 End: 09-03-2024 ambulatory Charmaine Reyes Facility:[facility] Start: 09-03-2024 End: 09-03-2024 ambulatory Charmaine Reyes Facility:[facility] Start: 06-13-2024 End: 06-13-2024 ambulatory Charmaine Reyes Facility:[facility] Start: 06-13-2024 End: 06-13-2024 ambulatory Charmaine Reyes Facility:[facility] Start: 04-11-2023 End: 04-11-2023 Emergency department patient visit [facility] Work Phone: Start: 09-03-2022 Non-patient / Non-visit Charmaine Mcdaniel [facility] Start: 09-02-2022 Non-patient / Non-visit Charmaine Mcdaniel [facility] Start: 09-01-2022 Non-patient / Non-visit Charmaine Mcdaniel [facility] Start: 08-31-2022 Non-patient / Non-visit Charmaine Mcdaniel [facility] Start: 08-31-2022 End: 09-03-2022 Evaluation and management of inpatient [facility] Start: 08-26-2022 End: 08-26-2022 Patient encounter procedure Charmaine Reyes [facility] Start: 08-25-2022 Non-patient / Non-visit Charmaine jenkins [facility] Start: 08-25-2022 End: 08-25-2022 Patient encounter procedure Charmaine Reyes [facility] Start: 08-20-2022 End: 08-20-2022 Patient encounter procedure Charmaine Reyes [facility] Start: 08-13-2022 End: 08-13-2022 Patient encounter procedure Charmaine Reyes [facility] Start: 08-11-2022 Non-patient / Non-visit Charmaine jenkins [facility] Start: 08-05-2022 End: 08-05-2022 [facility] Start: 07-26-2022 End: 07-26-2022 [facility] Start: 07-14-2022 Non-patient / Non-visit Charmaine jenkins [facility] Start: 07-14-2022 End: 07-14-2022 Patient encounter procedure Charmaine Reyes [facility] Start: 07-02-2022 End: 07-02-2022 Patient encounter procedure [facility] Start: 06-18-2022 End: 06-18-2022 ambulatory [facility] Work Phone: Start: 06-18-2022 End: 06-18-2022 [facility] Start: 05-21-2022 End: 05-21-2022 Patient encounter procedure [facility] Start: 04-23-2022 End: 04-23-2022 Patient encounter procedure [facility] Start: 03-26-2022 End: 03-26-2022 Patient encounter procedure [facility] Start: 03-26-2022 End: 03-26-2022 Patient encounter procedure Charmaine Reyes [facility] Start: 02-23-2022 End: 02-23-2022 Patient encounter procedure Charmaine Reyes [facility] Specimen Start: 02-23-2022 End: 02-23-2022 Patient encounter procedure Charmaine Reyes [facility] Start: 02-08-2022 Non-patient / Non-visit Charmaine jenkins [facility] Procedures Date Procedure Procedure Detail Performing Clinician Start: 11-08-2024 Transvaginal echography Charmaine Reyes Start: 09-03-2024 Gram stain microscopy D kameron Reyes Start: 09-03-2024 Source specific culture Charmaine Reyes Start: 04-11-2023 Plain chest X-ray Urine culture Charmaine Thao n Plan of Treatment Date Care Activity Detail Author Start: 09-03-2022 Patient discharge [facility] Work Phone: Start: 09-01-2022 Administration of medication [facility] Work Phone: Start: 09-01-2022 Application of ice c ollar, cap or bag [facility] Work Phone: Start: 09-01-2022 Catheterization of vein [facility] Work Phone: Start: 09-01-2022 Introduction of urinary catheter [facility] Work Phone: Start: 09-01-2022 Measuring intake and output [facility] Work Phone: Start: 09-01-2022 Notification of physician [facility] Work Phone: Start: 09-01-2022 Procedure discontinued [facility] Work Phone: Start: 09-01-2022 Provision of activity privileges [facility] Work Phone: Start: 09-01-2022 Vital signs measurements [facility] Work Phone: Start: 09-01-2022 [facility] Work Phone: Start: 08-31-2022 Admission procedure [facility] Work Phone: Start: 08-25-2022 End: 08-25-2022 [facility] Work Phone: Start: 08-25-2022 Patient discharge [facility] Work Phone: Start: 08-25-2022 Nonstress test [facility] Work Phone: Start: 08-25-2022 Obstetric monitoring [facility] Work Phone: Start: 08-25-2022 Vital signs measurements [facility] Work Phone: Start: 08-05-2022 Nonstress test [facility] Work Phone: Start: 08-05-2022 Obstetric monitoring [facility] Work Phone: Start: 08-05-2022 Vital signs measurements [facility] Work Phone: Start: 08-05-2022 [facility] Work Phone: Start: 08-05-2022 Patient discharge [facility] Work Phone: Start: 07-14-2022 Nonstress test [facility] Work Phone: Start: 07-14-2022 Obstetric monitoring [facility] Work Phone: Start: 07-14-2022 Vital signs measurements [facility] Work Phone: Start: 07-14-2022 [facility] Work Phone: Start: 07-14-2022 Patient discharge [facility] Work Phone: Start: 02-23-2022 Chlamydia deoxyribon ucleic acid detection [facility] Work Phone: Start: 02-23-2022 Liquid based cervica l cytology screening [facility] Work Phone: Bacterial nucleic acid assay [facility] Work Phone: CBC W Auto Different ial panel - Blood [facility] Work Phone: Hepatitis B surface antigen measurement [facility] Work Phone: Hepatitis C antibody measurement [facility] Work Phone: HIV 1+2 Ab+HIV1 p24 Ag [Presence] in Serum or Plasma by Immunoassay [facility] Work Phone: Neisseria gonorrhoea e rRNA [Presence] in Unspecified specimen by SRIKANTH with probe detection [facility] Work Phone: Path report.final Dx Spec [facility] Work Phone: Patient Education [facility] Work Phone: Patient referral [facility] Work Phone: PCR test for Chlamydia trachomatis [facility] Work Phone: Rubella IgG measurement [facility] Work Phone: Treponema sp Ab [Pre sence] in Serum [facility] Work Phone: Immunizations Immunization Date Immunization Notes Care Provider Fa cility 08-13-2022 influenza, injectabl e, quadrivalent, preservative free [facility] 08-13-2022 influenza, seasonal, injectable [facility] 08-13-2022 tetanus toxoid, redu caryn diphtheria toxoid, and acellular pertussis vaccine, adsorbed [facility] Payers Date Payer Category Payer Self-pay [id number] 2024 Unknown [id number] Unknown [id number] Unknown [employer] [id number] Unknown [id number] Unknown [id number] Unknown [id number] [id number] [id number] Unknown [id number] [id number] [id number] Unknown [id number] [id number] [id number] Unknown [id number] [id number] [id number] Unknown [id number] [id number] Social History Date Type Detail Facility Start: 02-23-2022 End: 04-11-2023 Tobacco smoking status NHIS Unknown if ever smoked [facility] Start: 2000 Sex Assigned At Female [facility] Start: 11-01-2024 Tobacco smoking status NHIS Never smoked tobacco (finding) [facility] Start: 11-13-2024 End: 11-21-2024 Sex Female (finding) [facility] NEGATED: Highlighted row [facility] Goals Date Patient Goal Desired Activity /State Mental Status Date Assessment Result Facility 09-02-2022 Cognitive function Appropriate [facility] Work Phone: Clinical Notes 02-23-2022 to 11-08-2024 Note Date & Type Note Facility 11-08-2024 Radiology Diagnostic study note [facility] Imaging Services [address], [place] [address] Transvaginal Non- MR#: [id number] Acct: [id number] Name: SHAYLA COOPER Rep #: [id number] : 2000 F 24 From: Karely Davey MD PCP: Charmaine Reyes Status: REG CLI Study:Transvaginal Non- Date of Exam: 11/08/24 Exam# [id number] Ordering Dr: Yin Raymundo CNM PROCEDURE: TRANSVAGINAL NON- REASON FOR EXAM: irregular vaginal bleeding TECHNIQUE: Grayscale and color/spectral doppler transvaginal pelvic ultrasound was performed. COMPARISON: Unavailable FINDINGS: Uterus: 9.0 x 4.8 x 3.7 cm, Anteverted, unremarkable.. Endometrium: 9 mm, vaguely trilaminar proliferative phase appearance. Cervix: Unremarkable. Right ovary: 2.0 x 2.6 x 2.5 cm (estimated volume 7 mL), unremarkable. Left ovary: 3.4 x 2.4 x 2.3 cm (estimated volume 10 mL), unremarkable. Free fluid: None visualized. US/Transvaginal Non- IMPRESSION: 1. No acute abnormality or findings which might explain the reported symptoms. 2. Additional description as above. Reading Location: [facility] CC: PJ Raymundo; Charmaine Villeda Grey Tender: Signed [facility] 11-01-2024 Note [facility] Pap Smear Specimen Adequacy November 02, 2024 12:59am Comment . Satisfactory for evaluation. Endocervical and/or squamous metaplasticcells (endocervical component) are present. Comment on above: Satisfactory for estelita luation. Endocervical and/or squamous metaplasticcells (endocervical component) are present. 11-01-2024 Note [facility] Pap Smear Specimen Adequacy November 02, 2024 12:59am Comment . Satisfactory for evaluation. Endocervical and/or squamous metaplasticcells (endocervical component) are present. Comment on above: Satisfactory for estelita luation. Endocervical and/or squamous metaplasticcells (endocervical component) are present. 09-03-2024 Evaluation note Diagnosis Onset Date Resolution Vaginal discharge acute Decembe r 2023 3:26pm Abnormal uterine bleeding acute November 01 1:42pm Encounter for routine gynecological examination noneactive November 01 1:42pm [facility] Work Phone: 1(591) 657-895108-07-2023 Discharge summary Author Wale Lemus [facility] April 11, 2023 3:43pm Note Date/Time April 11, 2023 3:[address] [facility] Medical Records Department [address] [place] [address] Emergency Department Summary 04/11/23 MR#: [id number] Acct: [id number] Name: SHAYLA COOPER Rep #:[id number] : 2000 23 From: Wale Lemus MD PCP: Charmaine Reyes Status:REG ER Location: ED HPI History of Present Illness Chief Complaint: Shortness of Breath Detail of Chief Complaint: Today Informant: patient and spouse/S.O. Onset/Context/Timing Onset: Today Context: sudden Timing: Continuous Quality: Positive for Dyspnea on exertion; Negative for Orthopnea, PND or Wheezing Current Severity: Mild Maximum Severity: Moderate Worsened by: - (Activity) Relieved by: Nothing Associated Symptoms Negative for cough, rhinorrhea, post nasal drip, ear pain, fever, sore throat, subjective, chills, sweats, clear sputum, white sputum, yellow sputum or green sputum Chest Pain: Positive for Continuous and Dull Narrative Narrative: Patient is a 23-year-old female who presents with dyspnea and mild chest pain. There is a component of component. She denies upper respiratory tract infectious symptoms. She denies fever or chills. Denies headache, visual, ocular auditory symptoms. Chest pain is central. Does not radiate. There is no associated nausea, vomiting or diaphoresis. She denies history of VTE. Denies leg pain, swelling discoloration. There is no family history of VTE. She denies black or maroon-colored stool. She is on hormonal therapy. PE Risk Factors: Negative for Cancer, OCP + Smoking + > 35, Prior DVT or PE, Recent immobilization, Recent surgery or Recent travel Prior similar symptoms: Yes (Not as severe or prolonged. Never sought medical attention) Recent Illness/Hospitalization: No PFSH PFS Medical History DUB (dysfunctional uterine bleeding) Pre-eclampsia Shingles Subcutaneous cyst (spontaneous vaginal delivery) Home Medications drospirenone 3 mg-ethinyl estradiol 0.03 mg tablet 1 tab PO DAILY #84 tabs 01/07/23 [Rx Last Taken Unknown] Allergy/AdvReac Type Severity Reaction Status Date / Time No Known Allergies Allergy Verified 04/11/23 13:57 Social History adopted: No household members: significant other number of children: 0 current occupational status: employed current occupation: [employer] Smoking Status: Never smoker alcohol intake: never substance use type: does not use do you feel safe at home: Yes additional social history: Tray PEREA ROS ED Constitutional Constitutional ED: Denies chills, fever(s), sweats or weight loss Eyes Eyes: Denies blurry vision, change in vision or diplopia ENT ENT ED: Denies ear pain, rhinorrhea or sore throat Cardiovascular Cardiovascular: Reports chest pain; Denies orthopnea, palpitations, paroxysmal nocturnal dyspnea or racing heartbeat Respiratory/Chest Respiratory/Chest: Reports dyspnea and dyspnea on exertion; Denies cough, orthopnea, paroxysmal nocturnal dyspnea or sputum Gastrointestinal Gastrointestinal: Denies abdominal pain, constipation, diarrhea, melena, nausea or vomiting Genitourinary Genitourinary ED: Denies dysuria or hematuria Musculoskeletal Musculoskeletal: Denies arthralgias, back pain, myalgias or neck pain Neurologic Neurologic: Denies headache(s), paresthesias or weakness Psychiatric Psychiatric: Denies anxiety or depression Endocrine Endocrinology: Denies cold intolerance or heat intolerance Hematologic/Lymphatic Hematologic/Lymphatic: Denies easy bleeding or easy bruising EXAM Physical Exam Const Vital Signs: 04/11/23 13:56 04/11/23 14:01 Temperature 97.3 F L Temperature Source Temporal Pulse Rate 73 Respiratory Rate 16 Respiratory Effort Non-Labored Short of Breath Respiratory Depth Normal Respiratory Pattern Normal Blood Pressure 139/75 H Blood Pressure Mean 96 Pulse Ox 100 Oxygen Delivery Method Room Air Positive well nourished and well developed Constitutional Narrative: Blood pressure is unremarkable. General Appearance ED: well developed and NAD; Negative for pallor HEENT Reports moist mucous membranes HEENT Narrative: Head is normocephalic. Ears normal. Posterior pharynx is normal. atraumatic Eyes PERRL and EOMs intact bilaterally General Eye ED: Negative for pale conjunctiva or scleral icterus Neck no lymphadenopathy, supple, no meningeal signs and no JVD Resp normal respiratory effort and clear to auscultation bilaterally Resp Narrative: There is no pain outpatient of the chest. There is no crepitus. There is no rash Cardio regular rate, regular rhythm, S1 normal heart sound, S2 normal heart sound and no murmurs GI non-tender, non-distended and no masses Auscultation: normoactive bowel sounds Palpation: soft Back/Spine no CVA tenderness and normal to inspection Extremity normal to inspection Extremity Narrative: There is no asymmetry, swelling, discoloration, leg vein distention, palpable cords or tenderness along the distribution of the deep venous system. Neuro oriented x3, CN's II-XII intact bilaterally and no sensory deficits noted Arthur Coma Scale: document GCS findings Spontaneous Obeys Commands Oriented 15 Sensorium / Orientation: alert Speech: speech normal Motor Exam: strength 5/5 throughout Psych mental status grossly normal Skin no wounds and skin turgor normal General Skin Exam: Negative for jaundice or pallor Lesions: no lesions Rashes: no rashes MDM MDM MDM Narrative Medical decision making narrative: EKG was obtained to evaluate for evidence of right heart strain. Chest x-ray torule out pneumothorax or pneumonia. D-dimer since patient is not PERC negative. Lab Data Attestation: I reviewed the patient's lab results. Lab results narrative: CBC is normal. D-dimer is normal Labs: Laboratory Results - last 24 hr 04/11/23 14:45 WBC 7.9 RBC 4.36 Hgb 12.5 Hct 36.6 L MCV 83.9 MCH 28.7 MCHC 34.2 RDW Std Deviation 40.2 RDW Coeff of Willi 13.0 Plt Count 271 MPV 10.0 D-Dimer Quant (PE/DVT) < 0.27 L Radiography Chest X-Ray - ED: 2 View and Read by ED Physician (Independently reviewed interpreted by me at 1500 as negative. Cardiac silhouette and size normal. Lung parenchyma normal. Perihilar region normal. Osseous structures are normal.) Diagnostic Testing: Clinical Impression(s) from Imaging Studies Chest X-Ray 04/11/23 14:58 IMPRESSION: Normal x-ray examination of the chest. Electronically Signed: Tanmay Curtis MD at 15:06 EDT , EKG Initial EKG: Attestation: I personally reviewed and interpreted this EKG as follows: Interpretation: Sinus Rhythm (Heart rate is 70. VT interval is 140 ms. Cures duration 86 ms. QT duration 4 to 10 ms. Sula is normal. Other than sinus arrhythmia the EKG is normal.) Treatment and Re-Evaluation :: With normal vital signs, normal chest x-ray normal D-dimer and normal CBC patient was discharged home. She was informed the cause of her shortness of breath is unknown. Discharge Plan Triage Chief Complaint: Shortness of Breath ED Provider: Wale Lemus Dx/Rx/DC Orders Clinical Impression: Acute dyspnea, Chest pain Instructions: ED Chest Pain, Noncardiac, ED Dyspnea Prescriptions: No Action drospirenone-ethinyl estradiol 3-0.03 mg tablet 1 tab PO DAILY Qty: 84 3RF Primary Care Provider: Charmaine Reyes Referrals: Charmaine Reyes [Primary Care Provider] - 3-5 Days if not improving Disposition Disposition: Home, Self Care What to do if you have Problems For any increased pain, shortness of breath, bleeding, nausea or vomiting, chestpain, or any unexpected problems, contact your Primary Care Provider. Call [facility] ([phone]) or report to the closest Emergency Room. Call 911 if necessary. 04/11/23 1543 <Electronically signed by Wale Lemus MD> Cosigner Signature (if applicable): CC: Charmaine Reyes ~ Signed [facility] Work Phone: 1(716) 162-882406-21-2022 NotePap Smear Specimen AdequacyJune 2021 5:07pmComment.Satisfactory for evaluation. Endocervical and/or squamous metaplasticcells (endocervical component)are present.[facility] A#[id number] Regional [facility] Center Work Phone: Comment on above:Satisfactory for evaluation. Endocervical and/or squamous metaplasticcells (endocervical component)are present.Evaluation note* Diagnosis Onset Date Resolution Status Contact with and (suspected) exposure to Zika virus acute acute Shingles acute Supervision of normal first acute [facility] Work Phone: Evaluation note* Diagnosis Onset Date Resolution Status acute Supervision of normal first acute Contact with and (suspected) exposure to Zika virus resolved Shingles resolved GBS (group B streptococcus) UTI complicating acute acute Supervision of normal first acute GBS (group B streptococcus) UTI complicating acute acute Supervision of normal first acute GBS (group B streptococcus) UTI complicating acute acute Supervision of normal first acute GBS (group B streptococcus) UTI complicating acute acute Supervision of normal first acute [facility] Work Phone: Evaluation note* Diagnosis Onset Date Resolution Status GBS (group B streptococcus) UTI complicating resolved resolved Supervision of normal first resolved GBS (group B streptococcus) UTI complicating resolved resolved Supervision of normal first resolved GBS (group B streptococcus) UTI complicating resolved resolved Supervision of normal first resolved GBS (group B streptococcus) UTI complicating resolved resolved Supervision of normal first resolved GBS (group B streptococcus) UTI complicating resolved resolved Supervision of normal first resolved GBS (group B streptococcus) UTI complicating resolved resolved Supervision of normal first resolved GBS (group B streptococcus) UTI complicating resolved resolved Supervision of normal first resolved Elevated BP without diagnosis of hypertension resolved GBS (group B streptococcus) UTI complicating resolved resolved Supervision of normal first resolved Elevated BP without diagnosis of hypertension resolved GBS (group B streptococcus) UTI complicating resolved resolved Supervision of normal first resolved Gestational hypertension acu te Preeclampsia acute (spontaneous vaginal delivery) acute Encounter for induction of labor resolved GBS (group B streptococcus) UTI complicating resolved resolved Supervision of normal first resolved [facility] Work Phone: Evaluation note* Diagnosis Onset Date Resolution Status DUB (dysfunctional uterine bleeding) acute Left otitis media acute Maxillary sinusitis acute [facility] Work Phone: Reason for referral (narrative)No reason for referral information availableWCoshocton Regional [facility] Work Phone: Chief Complaint and Reason for Visit Chief Complaint Sore throat & conges tion Amb Documentation NOB LMP 12/16 Reason for Visit Contact with and (sanz spected) exposure to Zika virus Shingles Supervision of normal first Chief Complaint NOB LMP 4/13 16 WK OB E ORDER 20 WK OB 24 WK OB E ORDERS 1 HR GLUCOSE 28WK OB / GLUCOSE Reason for Visit Supervision of normal first Contact with and (suspected) exposure to Zika virus Shingles GBS (group B streptococcus) UTI complicating Supervision of normal first GBS (group B streptococcus) UTI complicating Supervision of normal first GBS (group B streptococcus) UTI complicating Supervision of normal first GBS (group B streptococcus) UTI complicating Supervision of normal first Chief Complaint 24 WK OB E ORDERS 1 HR GLUCOSE 28WK OB / GLUCOSE 30 WK OB 32 WK OB ELEVATED BLOOD PRESSURE ELEVATED BLOOD PRESSURE 34WK OB R/O PRE E R/O PRE E 36 WK OB 37WK OB est ob R/O PRE E R/O PRE E BP check VAGINAL DELIVERY LABOR AND DELIVIERY LABOR AND DELIVIERY VAGINAL DELIVERY VAGINAL DELIVERY Reason for Visit GBS (group B strepto coccus) UTI complicating Supervision of normal first GBS (group B streptococcus) UTI complicating Supervision of normal first GBS (group B streptococcus) UTI complicating Supervision of normal first GBS (group B streptococcus) UTI complicating Supervision of normal first GBS (group B streptococcus) UTI complicating Supervision of normal first GBS (group B streptococcus) UTI complicating Supervision of normal first GBS (group B streptococcus) UTI complicating Supervision of normal first Elevated BP without diagnosis of hypertension GBS (group B streptococcus) UTI complicating Supervision of normal first Elevated BP without diagnosis of hypertension GBS (group B streptococcus) UTI complicating Supervision of normal first Gestational hypertension Preeclampsia (spontaneous vaginal delivery) Encounter for induction of labor GBS (group B streptococcus) UTI complicating Supervision of normal first Chief Complaint Ear complaints SOB Reason for Visit DUB (dysfunctional u terine bleeding) Left otitis media Maxillary sinusitis Chief Complaint Admit Date recurrent vaginal itching, recent treatm ent September 03, 2024 3:26pm 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, 2024 1:42pm IRREGULAR VAGINAL BLEEDING November 08 11:57am Reason for Visit Admit Date Vaginal discharge September 03, 2024 3:26pm Abnormal uterine bleeding November 01, 2024 1:42pm Encounter for routine gynecological exam ination November 01, 2024 1:42pm Advance Directives Advance Directive Response Recorded Date/ Time Living Will No August 31 022 7:49pm Power of Employee Benefits Coordinator No August 31, 2022 7:49pm Advance Directive Response Recorded Date/ Time Living Will No April 11, 2023 2:01pm Power of Employee Benefits Coordinator No April 11 2:01pm Advance Directive Response Recorded Date/ Time Living Will No April 11, 2023 2:01pm Do you have a Healthcare Power of Employee Benefits Coordinator? No April 11, 2023 2:01pm Summary Purpose Family History No Family History Records Found Additional Source Comments Goals (unrecognized section and content) Goals may be documented in a n alternate sectionGoals may be documented in an alternate sectionGoals may be documented in an alternate sectionGoals may be documented in an alternate sectionGoals may be documented in an alternate section Care Teams (unrecognized sec tion and content) Team Status: Active Member Role Status Dates Charmaine Reyes Primary Care Provider Active Team Status: Inactive Member Role Status Dates Charmaine Reyes Primary Care Provider, Referring Provi niles Active BARBARA Romero NPC Attending Provider Active Team Status: Inactive Member Role Status Dates Charmaine Reyes Primary Care Provider Active Dr. Wale Lemus MD Emergency Provider Active Team Status: Inactive Member Role Status Dates Charmaine Reyes Primary Care Provider Active Sta rt: September 03, 2024 End: September 03, 2024 Charmaine Reyes Referring Provider Active Start: September 03, 2024 End: September 03, 2024 GISELA Henao Attending Provider Active Start: September 03, 2024 End: September 03, 2024 Team Status: Inactive Member Role Status Dates Charmaine Reyes Primary Care Provider Active Sta rt: September 03, 2024 End: September 03, 2024 GISELA Henao Attending Provider Active Start: September 03, 2024 End: September 03, 2024 GISELA Henao Referring Provider Active Start: September 03, 2024 End: September 03, 2024 Team Status: Inactive Member Role Status Dates Charmaine Reyes Primary Care Provider Active Sta rt: November 01, 2024 End: November 01, 2024 Charmaine Reyes Referring Provider Active Start: November 01, 2024 End: November 01, 2024 Yin Raymundo CNM Attending Provider Active S tart: November 01, 2024 End: November 01, 2024 Team Status: Inactive Member Role Status Dates Charmaine Reyes Primary Care Provider Active Sta rt: November 01, 2024 End: November 01, 2024 Yin Raymundo CNM Attending Provider Active S tart: November 01, 2024 End: November 01, 2024 Yin Raymundo CNM Referring Provider Active S tart: November 01, 2024 End: November 01, 2024 Team Status: Active Member Role Status Dates Charmaine Reyes Primary Care Provider Active Sta rt: November 08, 2024 Yin Raymundo CNM Attending Provider Active S tart: November 08, 2024 Yin Raymundo CNM Referring Provider Active S tart: November 08, 2024 Team Status: Inactive Member Role Status Dates Charmaine Reyes Primary Care Provider Active Sta rt: November 08, 2024 End: November 08, 2024 Yin Raymundo CNM Attending Provider Active S tart: November 08, 2024 End: November 08, 2024 Yin Raymundo CNM Referring Provider Active S tart: November 08, 2024 End: November 08, 2024 INFORMATION SOURCE (unrecogn ized section and content) DATE CREATED AUTHOR 11/23/2024 [facility] FOR RECORDS PERTAINING TO PATIENTS WHO ARE OR HAVE BEEN ENROLLED IN A CHEMICAL DEPENDENCY/SUBSTANCEABUSE PROGRAM, SOME INFORMATION MAY BE OMITTED. This clinical summary was aggregated from multiple sources. Caution should be exercised in using it in the provision of clinical care. This summary normalizes information from multiple sources, and as a consequence, information in this document may materially change the coding, format and clinical context of patient data. In addition, data may be omitted in some cases. CLINICAL DECISIONS SHOULD BE BASED ON THE PRIMARY CLINICAL RECORDS. [facility] [facility]. provides no warranty or guarantee of the accuracy or completeness of information in this document.
[2025-04-09 10:15] LABS: hCG Titer Quant., Serum 556 mIU/mL (<9 non-preg)
== END | disposition home or self-care (01) ==
PROVIDERS: Referring Provider Obstetrics & Gynecology; Visit Provider Obstetrics & Gynecology
DX: N91.2 Amenorrhea, unspecified (principal)
CPT/HCPCS: 36415; 84702

== ENCOUNTER → 2025-04-11 | Outpatient (CLI) | payer SELFPAY ==
[2025-04-11 08:58] LABS: hCG Titer Quant., Serum 1190 mIU/mL (<9 non-preg)
== END | disposition home or self-care (01) ==
LOC: LAB 07:42
PROVIDERS: Referring Provider Obstetrics & Gynecology; Visit Provider Obstetrics & Gynecology
DX: N91.2 Amenorrhea, unspecified (principal)
CPT/HCPCS: 36415; 84702

== ENCOUNTER → 2025-04-16 | Outpatient (CLI) | payer SELFPAY ==
--- NOTE | 2025-04-16 16:20 | US_ITS ---
PROCEDURE: TRANSVAGINAL W/PREG US 04/16/2025 REASON FOR EXAM: DATING Unknown last menstrual. TECHNIQUE: TRANSVAGINAL W/PREG US COMPARISON: None FINDINGS: Number of Gestational Sacs: 1 Gestational Sac Shape: Normal. There is a 2.3 cm x 1.3 cm x 1 cm anechoic focus adjacent to the gestational sac suggestive of possible bleed. Number of Fetuses: 1 Heart Rate: Not detected. Yolk Sac: Not visualized. Placenta: Presently not well-visualized Amniotic Fluid Volume: Subjectively normal for gestational age. Uterine Abnormalities: Maternal uterus is unremarkable. Ovaries / Adnexa: There is a 2.4 cm 2 cm 1.3 cm corpus luteum cyst in the right ovary. DIMENSIONS: Gestational Sac: 0.91 cm/5 weeks and 5 days Yolk Sac: Not visualized. ESTIMATED GESTATIONAL AGE: By Ultrasound: 5 weeks and 5 days ESTIMATED DATE OF DELIVERY: By Ultrasound: December 12, 2025. US/Transvaginal w/Preg US IMPRESSION: Intrauterine gestational sac with mean gestational age of 5 weeks and 5 days. No pole or yolk sac is seen. Follow-up recommended. Reading Location: [place]
== END | disposition home or self-care (01) ==
LOC: US 16:19
PROVIDERS: Referring Provider Obstetrics & Gynecology; Visit Provider Obstetrics & Gynecology
DX: Z34.90 Encounter for supervision of normal pregnancy, unspecified, unspecified trimester (principal)
CPT/HCPCS: 76817

== ENCOUNTER → 2025-04-18 | Outpatient (CLI) | payer SELFPAY ==
[2025-04-18 11:33] LABS: hCG Titer Quant., Serum 13084 mIU/mL (<9 non-preg)
== END | disposition home or self-care (01) ==
LOC: LAB 09:43
PROVIDERS: Referring Provider Obstetrics & Gynecology; Visit Provider Obstetrics & Gynecology
DX: Z34.90 Encounter for supervision of normal pregnancy, unspecified, unspecified trimester (principal)
CPT/HCPCS: 36415; 84702

== ENCOUNTER → 2025-04-22 | Outpatient (CLI) | payer OTHER, SELFPAY ==
[2025-04-22 13:36] LABS: hCG Titer Quant., Serum 28554 mIU/mL (<9 non-preg)
== END | disposition home or self-care (01) ==
PROVIDERS: Referring Provider Obstetrics & Gynecology; Visit Provider Obstetrics & Gynecology
DX: Z34.90 Encounter for supervision of normal pregnancy, unspecified, unspecified trimester (principal); N93.9 Abnormal uterine and vaginal bleeding, unspecified
CPT/HCPCS: 36415; 84702

== ENCOUNTER → 2025-05-17 | Outpatient (CLI) | payer OTHER, SELFPAY ==
[2025-05-17 10:46] LABS: Creatinine, Urine (random) 65.40 mg/dL (28.00-217.00); Protein, Urine (Random) < 6.0 mg/dL (0.0-12.0); Protein:Creat Ratio UNABLE TO CALCULATE mg/g CRE (0-200)
[2025-05-20 20:08] LABS: Chlamydia By Nucleic Acid AMP Negative (Negative); Gonococcus By Nucleic Acid AMP Negative (Negative)
== END | disposition home or self-care (01) ==
LOC: LABSPEC 09:55
PROVIDERS: Referring Provider Obstetrics & Gynecology; Visit Provider Obstetrics & Gynecology
DX: O09.90 Supervision of high risk pregnancy, unspecified, unspecified trimester (principal); Z87.59 Personal history of other complications of pregnancy, childbirth and the puerperium; Z3A.00 Weeks of gestation of pregnancy not specified
CPT/HCPCS: 82570; 84156; 87086; 87088; 87491; 87591

== ENCOUNTER → 2025-05-20 | Outpatient (CLI) | payer OTHER, SELFPAY ==
[2025-05-20 09:36] LABS: Hematocrit 36.7 % (37-47); Hemoglobin 12.9 g/dL (12.0-15.0); Immature Granulocytes Count 0.020 X10^3/uL (0.0-0.0); Mean Corp Hgb Conc 35.1 g/dL (32-36); Mean Corpuscular Volume 85.2 fL (81-99); Mean Platelet Vol. 10.4 fl (6.2-12.0); NRBC Flagged by Analyzer 0 % (0-5); Platelet Count 241 K/mm3 (150-450); RBC Distribution Width CV 11.9 % (11.6-14.6); RBC Distribution Width SD 37.3 fl (35.1-43.9); Red Blood Count 4.31 M/mm3 (4.2-5.4); White Blood Count 5.7 K/mm3 (4.4-11.0)
[2025-05-20 10:23] LABS: AST(SGOT) 18 U/L (<=31); Alanine Aminotransfer ALT/SGPT 13 U/L (<=34); Albumin, Serum 3.9 g/dL (3.5-5.0); Alkaline Phosphatase 49 U/L (35-104); Anion Gap 11 (5-15); BUN 9 mg/dL (4-19); BUN/Creat Ratio 13.2 RATIO (10-20); Calcium,Total 9.2 mg/dL (7.6-11.0); Carbon Dioxide 21.9 mmol/L (21.0-32.0); Chloride 105 mmol/L (98-108); Globulin 2.0 g/dL (2.2-4.2); Glucose 93 mg/dL (70-99); HIV Nonreactive (Nonreactive); Hepatitis B Surface Antigen Nonreactive (Nonreactive); Hepatitis C Antibody Nonreactive (Nonreactive); Potassium 3.6 mmol/L (3.3-5.1); Syphilis Antibodies Nonreactive (Nonreactive)
== END | disposition home or self-care (01) ==
PROVIDERS: Referring Provider Obstetrics & Gynecology; Visit Provider Obstetrics & Gynecology
DX: O09.90 Supervision of high risk pregnancy, unspecified, unspecified trimester (principal); Z3A.00 Weeks of gestation of pregnancy not specified
CPT/HCPCS: 36415; 80053; 85025; 86703; 86762; 86780; 86803; 86850; 86900; 86901; 87340